=== PATIENT | male | born 1945 | race Caucasian/White ===

== ENCOUNTER 2017-05-08 01:14 | Inpatient (IN) | payer MEDICARE, OTHER ==
[2017-05-08] VITALS (26 sets, daily range): BP systolic 108–198; BP diastolic 60–117; PULSE 60–80; RESP 12–20; TEMP 97.3–98.1; O2SAT 97–100
[~2017-05-08] VITALS: Ht 170.2 cm; Wt 71.7 kg
[~2017-05-08 01:14] MED LIST: ANTI25TA2 PO; ATRO17AE IN; ATRO17AE INH; BACL10TA PO; BACLPOW30 XX; CLON-481 PO; CLON.2 PO; DEPA500T3 PO; DOCU1CAP39 PO; DUONI NEB; FLEX10TA PO; FLON0.053; HYDR-3129 PO; HYDR25TA35 PO; IMIT50TA PO; IPRA17I INH; LIDO5DIS35 TD; LORA-474 PO; LYRI50CA2 PO; MECL-62 PO; MOBI7.5T PO; NORV5TAB PO; OXYC30TA PO; POLY119S PO; POTA-267 PO; PRIL40CA PO; SENN-29 PO; SERT50 PO; SUMA50 PO; THERM PO; TRAZ100 PO; ULTR50TA PO; VITA-83 PO; VITATAB25 PO; ZANT150T2 PO; ZOLO100T PO; [UNRECOGNIZED DRUG - CODE] EACH EYE; [UNRECOGNIZED DRUG - CODE] EX
[2017-05-08] MEDS ORDERED: SODIUM CHLORIDE 0.9% FLUSH 10 ML FLUSH IVF PRN (01:30)
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
[2017-05-08] MEDS ORDERED: LISI10TA3 PO (02:02)
[2017-05-08] MEDS ORDERED: TRAZ100T10 PO (02:02)
[2017-05-08] MEDS ORDERED: DEPA500T PO (02:02)
[2017-05-08] MEDS ORDERED: OS-CTAB3 PO (02:02)
[2017-05-08] MEDS ORDERED: HYDR-4204 TOPICAL (02:02)
[2017-05-08] MEDS ORDERED: ALPR.5 PO (02:02)
[2017-05-08] MEDS ORDERED: VITATAB56 PO (02:02)
[2017-05-08] MEDS ORDERED: HYDR-3366 PO (02:02)
--- NOTE | 2017-05-08 02:12 | RADRPT ---
EXAM DATE/TIME: 05/08/2017 01:58 [facility] COMPARISON: CT BRAIN W/O CONTRAST, July 22, 2014, 6:11. INDICATIONS : Trauma, fall. Hematoma to right head. RADIATION DOSE: 31.19 CTDIvol (mGy) MEDICAL HISTORY : Cerebrovascular disease. Hypertension. CAD. SURGICAL HISTORY : None. ENCOUNTER: Initial ACUITY: 3 days PAIN SCALE: 10/10 LOCATION: Right cranial TECHNIQUE: Multiple contiguous axial images were obtained of the head. Using automated exposure control and adj ustment of the mA and/or kV according to patient size, radiation dose was kept as low as reasonably a chievable to obtain optimal diagnostic quality images. DICOM format image data is available electro nically for review and comparison. FINDINGS: There is a moderate to large right subdural hematoma over the right frontal and parietal convexi ties measuring up to 1.8 cm with mass effect and midline shift to the left of approximately 8 mm. The re are areas of subarachnoid hemorrhage involving the parietal convexities bilaterally. There is part ial effacement of the right lateral ventricle. There is a cephalohematoma over the right frontal and parietal bones with no evidence of fracture. Air-fluid levels are noted in the sphenoid sinuses right greater than left. There is mucosal thickening in the ethmoidal air cells. There is mild asymmetry o f the suprasellar cisterns CONCLUSION: 1. Moderate to large right subdural hematoma with mass effect and midline shift. 2. Bilateral subarachnoid hemorrhage. 3. Large cephalohematoma over the right frontal and parietal bones with no evidence of fracture. Jacobo Davis MD on May 08, 2017 at 2:04 Board Certified Radiologist. This report was verified electronically.
--- NOTE | 2017-05-08 02:13 | RADRPT ---
EXAM DATE/TIME: 05/08/2017 01:58 [facility] COMPARISON: No previous studies available for comparison. INDICATIONS : Trauma, fall. RADIATION DOSE: 19.24 CTDIvol (mGy) MEDICAL HISTORY : Hypertension. Cerebrovascular disease. CAD. SURGICAL HISTORY : None. ENCOUNTER: Initial ACUITY: 3 days PAIN SCALE: 0/10 LOCATION: neck TECHNIQUE: Volumetric scanning of the cervical spine was performed. Multiplanar reconstructions i n the sagittal, coronal and oblique axial planes were performed. Using automated exposure control a nd adjustment of the mA and/or kV according to patient size, radiation dose was kept as low as reason ably achievable to obtain optimal diagnostic quality images. DICOM format image data is available e lectronically for review and comparison. FINDINGS: The sagittal reconstructions demonstrate normal alignment and normal prevertebral soft tissues. The d ens is intact and there is a normal atlantoaxial relationship. Degenerative changes present greatest at the C4-5 level with disc space narrowing and hypertrophic change. The axial images demonstrate that the vertebral bodies and posterior elements are intact. The soft ti ssues are within normal limits. There is no evidence of acute fracture or malalignment. Degenerative changes are noted involving the uncovertebral joints. CONCLUSION: Negative trauma CT. Jacobo Davis MD on May 08, 2017 at 2:11 Board Certified Radiologist. This report was verified electronically.
[2017-05-08] MEDS ORDERED: LABETALOL HCL 100 MG/20 ML VIAL IV PUSH ONE ×2 (02:15→02:30)
[2017-05-08 02:17] LABS: AUTOMATED NEUTROPHIL # 3.9 TH/MM3 (1.8-7.7); BASOPHIL # 0.1 TH/MM3 (0-0.2); BASOPHIL % 2.1 % (0.0-2.0); EOSINOPHIL % 0.4 % (0.0-4.0); HEMATOCRIT 40.4 % (39.0-51.0); HEMOGLOBIN 13.8 GM/DL (13.0-17.0); LYMPH % 16.3 % (9.0-44.0); LYMPHOCYTE # 0.9 TH/MM3 (1.0-4.8); MEAN CELL VOLUME 94.8 FL (80.0-100.0); MEAN CORPUSCULAR HEMOGLOBIN 32.4 PG (27.0-34.0); MEAN CORPUSCULAR HGB CONC 34.1 % (32.0-36.0); MONO % 10.5 % (0.0-8.0); MONOCYTE # 0.6 TH/MM3 (0-0.9); NEUT % 70.7 % (16.0-70.0); PLATELET COUNT 62 TH/MM3 (150-450); RED BLOOD COUNT 4.26 MIL/MM3 (4.50-5.90); RED CELL DISTRIBUTION WIDTH 15.1 % (11.6-17.2); WHITE BLOOD COUNT 5.5 TH/MM3 (4.0-11.0)
[2017-05-08 02:18] LABS: INTERNATIONAL NORMALIZED RATIO 1.2 RATIO; PROTHROMBIN TIME - PATIENT 11.8 SEC (9.8-11.6)
--- NOTE | 2017-05-08 02:18 | RADRPT ---
EXAM DATE/TIME: 05/08/2017 01:58 [facility] COMPARISON: CT BRAIN W/O CONTRAST, May 08, 2017, 1:58. INDICATIONS : Trauma, fall. Hematoma to right side of head. RADIATION DOSE: 54.08 CTDIvol (mGy) MEDICAL HISTORY : Cerebrovascular disease. Hypertension. CAD. SURGICAL HISTORY : None. ENCOUNTER: Initial ACUITY: 1 day PAIN SCORE: 4/10 LOCATION: facial TECHNIQUE: Volumetric scanning of the facial bones was performed. Using automated exposure control and adjustme nt of the mA and/or kV according to patient size, radiation dose was kept as low as reasonably achiev able to obtain optimal diagnostic quality images. DICOM format image data is available electronicall y for review and comparison. FINDINGS: ORBITS: The orbital and infraorbital osseous structures are intact. The retroconal structures have a normal configuration. No radiopaque foreign bodies are seen. NASAL BONE: The nasal bone and maxillary spine are intact ZYGOMATIC ARCHES: Symmetric without evidence of fracture. SINUSES: The maxillary, ethmoid and frontal sinuses are intact. There are fluid levels in both sphenoid sinuse s and right frontal sinus. Mucosal thickening is noted in the ethmoidal air cells. NASAL CAVITY: The nasal septum is intact and midline. The lacrimal ducts are intact. SOFT TISSUES: No radiopaque foreign bodies seen. No soft-tissue swelling is seen. INTRACRANIAL: No intracranial air seen. CRIBIFORM PLATE: Grossly intact. The right subdural hematoma seen on the brain CT is again visualized. CONCLUSION: 1. No acute fracture or malalignment. 2. Air-fluid levels and mucosal thickening in the paranasal sinuses. 3. Moderate to large right subdural hematoma again visualized. Please see brain CT for further detail hank Davis MD on May 08, 2017 at 2:12 Board Certified Radiologist. This report was verified electronically.
--- NOTE | 2017-05-08 02:19 | RADRPT ---
EXAM DATE/TIME: 05/08/2017 01:49 [facility] COMPARISON: CHEST SINGLE AP, July 22, 2014, 5:20. INDICATIONS : Chest pain post fall. MEDICAL HISTORY : None. SURGICAL HISTORY : Pacemaker. ENCOUNTER: Initial ACUITY: 1 day PAIN SCORE: 110 LOCATION: Bilateral chest FINDINGS: A single view of the chest demonstrates the lungs to be symmetrically aerated without evidence of mas s, infiltrate or effusion. The cardiomediastinal contours are unremarkable. Osseous structures are intact. The right subclavian area sequential transvenous pacer remains in place. Mild atherosclerotic changes are present in the aorta. CONCLUSION: No acute disease. Jacobo Davis MD on May 08, 2017 at 2:17 Board Certified Radiologist. This report was verified electronically.
--- NOTE | 2017-05-08 02:20 | RADRPT ---
EXAM DATE/TIME: 05/08/2017 01:50 [facility] COMPARISON: No previous studies available for comparison. INDICATIONS : Pelvis pain post fall. MEDICAL HISTORY : None. SURGICAL HISTORY : Pain pump. ENCOUNTER: Initial ACUITY: 1 day PAIN SCORE: 1/10 LOCATION: Bilateral pelvis. FINDINGS: A single frontal view of the pelvis demonstrates no evidence of fracture. The bony pelvic ring is in tact. Bony mineralization is normal. The soft tissues are intact. A pain pump is present projected over the right ilium which is partially obscured. CONCLUSION: No acute fracture. The hips are intact. Jacobo Davis MD on May 08, 2017 at 2:18 Board Certified Radiologist. This report was verified electronically.
[2017-05-08] MEDS ORDERED: MORPHINE SULFATE 4 MG/ML INJ IV PUSH ONE (02:30)
[2017-05-08 02:41] LABS: BICARBONATE 26.1 MEQ/L (21.0-32.0); CALCIUM 8.6 MG/DL (8.5-10.1); CREATININE 0.88 MG/DL (0.60-1.30)
[2017-05-08] MEDS ORDERED: SENNOSIDES 8.6 MG TAB PO PRN ×2 (02:45→04:00)
[2017-05-08] MEDS ORDERED: SODIUM CHLORIDE 0.9% FLUSH 10 ML FLUSH IV FLUSH PRN ×2 (02:45→04:00)
[2017-05-08] MEDS ORDERED: RESP: ALBUTEROL 2.5 MG/3 ML NEB (PRN) NEB (02:45)
[2017-05-08] MEDS ORDERED: LACTULOSE SYRUP 20 GM/30 ML CUP PO PRN ×2 (02:45→04:00)
[2017-05-08] MEDS ORDERED: LORazepam 2 MG/ML VIAL IV PUSH PRN (02:45)
[2017-05-08] MEDS ORDERED: MAGNESIUM HYDROXIDE SUSP 30 ML CUP PO PRN ×2 (02:45→04:00)
[2017-05-08] MEDS ORDERED: CALCIUM GLUCONATE INJ 1 GM in SODIUM CHLORIDE 0.9% INJ 100 ML IV PRN (02:45)
[2017-05-08] MEDS ORDERED: MAGNESIUM SULFATE INJ 2 GM in SODIUM CHLORIDE 0.9% INJ 100 ML IV PRN (02:45)
[2017-05-08] MEDS ORDERED: SODIUM CHLOR 0.9% 250 ML INJ 250 ML IV ONE (02:45)
[2017-05-08] MEDS ORDERED: niCARdipine INJ 25 MG in SODIUM CHLOR 0.9% 250 ML INJ 240 ML IV ONE (02:45)
[2017-05-08] MEDS ORDERED: diphenhydrAMINE HCL 25 MG CAP PO PRN (02:45)
[2017-05-08] MEDS ORDERED: ONDANSETRON HCL 4 MG/2 ML VIAL IV PUSH PRN (02:45)
[2017-05-08] MEDS ORDERED: BISACODYL 10 MG SUPP RECTAL PRN ×2 (02:45→04:00)
[2017-05-08] MEDS ORDERED: FUROSEMIDE 20 MG/2 ML VIAL IV PUSH ONE (02:45)
[2017-05-08] MEDS ORDERED: MORPHINE SULFATE 4 MG/ML INJ IV PUSH PRN ×2 (02:45)
[2017-05-08] MEDS ORDERED: ALUMINUM/MAGNESIUM/SIMETH 30 ML CUP PO PRN (02:45)
[2017-05-08] MEDS ORDERED: ZOLO100T PO (02:48)
[2017-05-08] MEDS ORDERED: CETI10CA3 PO (02:48)
[2017-05-08] MEDS ORDERED: levETIRAcetam INJ 100 ML IV ONE (02:55)
[2017-05-08] MEDS ORDERED: THROMBIN (TOPICAL) 5,000 UNIT VIAL ONE (03:12)
[2017-05-08] MEDS ORDERED: GELFOAM SIZE 100 ONE (03:12)
[2017-05-08] MEDS ORDERED: GENTAMICIN SULFATE 80 MG/2 ML VIAL ONE (03:12)
[2017-05-08] MEDS ORDERED: BUPIVACAINE/EPINEPHRINE 0.5% PF 30 ML VIAL ONE (03:15)
[2017-05-08] MEDS ORDERED: ACETAMINOPHEN 325 MG TAB PO PRN (04:00)
[2017-05-08] MEDS ORDERED: RESP: ALBUTEROL 2.5 MG/IPRATROPIUM 0.5 MG NEB (PRN) INH (04:00)
[2017-05-08] MEDS: CHLORHEXIDINE GLUCONATE 2 % 1 PACK (2 CLOTHS) TOP SCH (04:00)
[2017-05-08] MEDS ORDERED: MISCELLANEOUS NURSING INFORMATION XX SCH (04:00)
[2017-05-08] MEDS ORDERED: CHLORHEXIDINE GLUCONATE 2 % 1 PACK (2 CLOTHS) TOP PRN (04:00)
--- NOTE | 2017-05-08 04:20 | HHI.HP ---
HPI Service Critical Care Medicine Primary Care Physician Farshad Crowley MD Admission Diagnosis SUBDURAL hematoma with shift Diagnosis: Travel History International Travel<30 Days: No Contact w/Intl Traveler <30 Da: No Traveled to Known Affected Are: No History of Present Illness 72-year-old male , currently at the rehabilitation facility, who fell from his bed and has a swelling to his right temporal area. He has arrived C-collared and boarded complains also back pain and mid thoracic. Patient is hard of hearing and slightly demented. His main complaint is fall from bed swelling to his head and back neck just prior to arrival. CT of the head reveals moderate to large right subdural hematoma with a mass effect and midline shift. Bilateral subarachnoid humeri which, a large cephalohematoma over the right frontal and parietal bones with no evidence of fracture. The patient is admitted to critical care services with a neurosurgical consultation in place. 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 Past Medical History Anemia Anxiety and depression Heart block status post PPM COPD Hypertension Tonic pain syndrome Migraines History of alcoholism Past Surgical History Permanent pacemaker placement Right shoulder surgery Reported Medications Reported Meds & Active Scripts Active Reported Zyrtec (Cetirizine HCl) 10 Mg Capsule 10 PO HS Zoloft (Sertraline HCl) 100 Mg Tab 200 Mg PO DAILY Xanax (Alprazolam) 0.5 Mg Tab 0.5 Mg PO Q6H PRN Vitamin D-400 (Cholecalciferol) 400 Unit Tab 400 Units PO DAILY Trazodone (Trazodone HCl) 100 Mg Tablet 200 Mg PO HS Os-Ramana Calcium + D3 (Calcium Carbonate-Cholecalciferol) 500-200 Mg-Unit Tab 1 Tab PO BID [place] (Hydrocodone-Acetaminophen) 10-325 Mg Tab 1 Tab PO Q4H PRN Lisinopril 10 Mg Tab 10 Mg PO DAILY Ala-Berny Topical (Hydrocortisone (Topical)) 2.5% Cream 1 Applic TOPICAL DIRECTED Sheri BRAGG (Divalproex Sodium) 500 Mg Tabdr 500 Mg PO BID Active Ordered Medications Current Medications Medications (Trade) Dose Ordered Sig/Pasquale Route PRN Reason Start Time Stop Time Status Last Admin Dose Admin Sodium Chloride (NS Flush) 2 ml UNSCH PRN IVF FLUSH AFTER USING IV ACCESS 05/08/17 01:30 Sodium Chloride 250 ml @ 15 mls/hr ONCE ONCE IV 05/08/17 02:45 05/08/17 19:24 Diphenhydramine HCl (Benadryl) 25 mg Q4H PRN PO SEE LABEL COMMENTS 05/08/17 02:45 Sodium Chloride (NS Flush) 2 ml UNSCH PRN IV FLUSH FLUSH AFTER USING IV ACCESS 05/08/17 02:45 Sodium Chloride (NS Flush) 2 ml BID IV FLUSH 05/08/17 09:00 Levetriacetam 500 mg/Sodium Chloride 105 ml @ 400 mls/hr Q12H IV 05/08/17 15:00 Lorazepam (Ativan Inj) 1 mg Q1H PRN IV PUSH SEIZURES 05/08/17 02:45 Al Hydrox/Mg Hydrox/Simethicone (Mag-Al Plus Susp Liq) 30 ml Q6H PRN PO DYSPEPSIA 05/08/17 02:45 Pantoprazole Sodium (Protonix) 40 mg DAILY PO 05/08/17 09:00 Ondansetron HCl (Zofran Inj) 4 mg Q6H PRN IV PUSH NAUSEA OR VOMITING 05/08/17 02:45 Calcium Gluconate 1 gm/Sodium Chloride 110 ml @ 110 mls/hr UNSCH PRN IV SEE LABEL COMMENTS 05/08/17 02:45 Potassium Chloride 100 ml @ 50 mls/hr UNSCH PRN IV POTASSIUM LESS THAN 4 05/08/17 02:45 Magnesium Sulfate 2 gm/Sodium Chloride 104 ml @ 100 mls/hr UNSCH PRN IV MAGNESIUM LESS THAN 2 05/08/17 02:45 Morphine Sulfate (Morphine Inj) 2 mg Q2H PRN IV PUSH PAIN SCALE 1 TO 6 05/08/17 02:45 Morphine Sulfate (Morphine Inj) 4 mg Q2H PRN IV PUSH PAIN SCALE 7 TO 10 05/08/17 02:45 Labetalol HCl (Trandate Inj) 10 mg Q1H PRN IV PUSH SYS BP GREATER THAN 170 MMHG 05/08/17 02:45 Clonidine (Catapres) 0.1 mg Q6H PRN PO SYS BP GREATER THAN 170 MMHG 05/08/17 02:45 Albuterol Sulfate (Albuterol Neb) 2.5 mg Q4HR NEB PRN NEB WHEEZING 05/08/17 02:45 Senna/Docusate Sodium (Jenny-Colace) 1 tab BID PO 05/08/17 09:00 Magnesium Hydroxide (Milk Of Magnesia Liq) 30 ml Q12H PRN PO Mild constipation 05/08/17 02:45 Sennosides (Senokot) 17.2 mg Q12H PRN PO Moderate constipation 05/08/17 02:45 Bisacodyl (Dulcolax Supp) 10 mg DAILY PRN RECTAL SEVERE CONSITIPATION 05/08/17 02:45 Lactulose (Lactulose Liq) 30 ml DAILY PRN PO SEVERE CONSITIPATION 05/08/17 02:45 Nicardipine HCl 25 mg/Sodium Chloride 250 ml @ 50 mls/hr TITRATE PRN IV Blood pressure management 05/08/17 02:45 Family History No family history significant of cancer Social History Alcohol Use: Yes (OCC) Tobacco Use: Yes (1/4 PPD) Substance Use: Yes (HX OF PER REHAB FACILITY) Physical Exam Vital Signs Vital Signs Date Time Temp Pulse Resp B/P (MAP) Pulse Ox O2 Delivery O2 Flow Rate FiO2 05/08/17 03:45 97.5 74 20 117/73 98 05/08/17 03:25 74 20 123/75 (91) 99 Nasal Cannula 2.00 05/08/17 03:08 73 20 128/79 (95) 98 Nasal Cannula 2.00 05/08/17 03:02 72 20 137/80 (99) 98 Nasal Cannula 2.00 05/08/17 02:55 74 114/72 05/08/17 02:43 69 178/94 05/08/17 02:41 70 18 178/94 (122) 98 Room Air 05/08/17 02:38 67 20 192/101 (131) 99 Nasal Cannula 2.00 05/08/17 02:30 71 20 193/109 (137) 100 Nasal Cannula 2.00 05/08/17 02:22 69 20 197/114 (141) 99 Nasal Cannula 2.00 05/08/17 02:16 66 20 198/98 (131) 97 Nasal Cannula 2.00 05/08/17 01:49 98 Nasal Cannula 2.00 05/08/17 01:32 80 20 99 05/08/17 01:26 98.1 80 20 189/117 (141) 99 Physical Exam GENERAL: Well-nourished, well-developed patient. SKIN: Warm and dry. HEAD: Right head swelling 4 cm over right druze . EYES: No scleral icterus. No injection or drainage. NECK: Supple, trachea midline. No JVD or lymphadenopathy. CARDIOVASCULAR: Regular rate and rhythm without murmurs, gallops, or rubs. RESPIRATORY: Breath sounds equal bilaterally. No accessory muscle use. GASTROINTESTINAL: Abdomen soft, non-tender, nondistended. MUSCULOSKELETAL: No cyanosis, or edema. BACK: Nontender without obvious deformity. NEURO EXAM: GCS: 15 Mental Status: The patient is alert and oriented to person, place, and time with normal speech. Laboratory Laboratory Tests Test 05/08/17 01:30 White Blood Count 5.5 Red Blood Count 4.26 Hemoglobin 13.8 Hematocrit 40.4 Mean Corpuscular Volume 94.8 Mean Corpuscular Hemoglobin 32.4 Mean Corpuscular Hemoglobin Concent 34.1 Red Cell Distribution Width 15.1 Platelet Count 62 Mean Platelet Volume 9.0 Neutrophils (%) (Auto) 70.7 Lymphocytes (%) (Auto) 16.3 Monocytes (%) (Auto) 10.5 Eosinophils (%) (Auto) 0.4 Basophils (%) (Auto) 2.1 Neutrophils # (Auto) 3.9 Lymphocytes # (Auto) 0.9 Monocytes # (Auto) 0.6 Eosinophils # (Auto) 0.0 Basophils # (Auto) 0.1 CBC Comment AUTO DIFF Differential Comment AUTO DIFF CONFIRMED Platelet Estimate LOW Platelet Morphology Comment NORMAL Prothrombin Time 11.8 Prothromb Time International Ratio 1.2 Blood Urea Nitrogen 17 Creatinine 0.88 Random Glucose 129 Calcium Level 8.6 Sodium Level 137 Potassium Level 3.8 Chloride Level 104 Carbon Dioxide Level 26.1 Anion Gap 7 Estimat Glomerular Filtration Rate 85 Result Diagram: 05/08/1712905/08/17129 Imaging Last 24 hours Impressions Pelvis X-Ray 05/08/17128 Signed Impressions: Service Date/Time: April 01:50 - CONCLUSION: No acute fracture. The hips are intact. Jacobo Davis MD Maxillofacial CT 05/08/17128 Signed Impressions: Service Date/Time: April 01:58 - CONCLUSION: 1. No acute fracture or malalignment. 2. Air-fluid levels and mucosal thickening in the paranasal sinuses. 3. Moderate to large right subdural hematoma again visualized. Please see brain CT for further details. Jacobo Davis MD Head CT 05/08/17128 Signed Impressions: Service Date/Time: April 01:58 - CONCLUSION: 1. Moderate to large right subdural hematoma with mass effect and midline shift. 2. Bilateral subarachnoid hemorrhage. 3. Large cephalohematoma over the right frontal and parietal bones with no evidence of fracture. Jacobo Davis MD Chest X-Ray 05/08/17128 Signed Impressions: Service Date/Time: April 01:49 - CONCLUSION: No acute disease. Jacobo Davis MD Cervical Spine CT 05/08/17128 Signed Impressions: Service Date/Time: April 01:58 - CONCLUSION: Negative trauma CT. Jacobo Davis MD Septic Shock Reassessment Septic shock perfusion: reassessment completed Caprini VTE Risk Assessment Caprini VTE Risk Assessment: Mod/High Risk (score >= 2) Caprini Risk Assessment Model Point Value = 1 Point Value = 2 Point Value = 3 Point Value = 5 Age 41-60 Minor surgery BMI > 25 kg/m2 Swollen legs Varicose veins or History of unexplained or recurrent spontaneous Oral contraceptives or hormone replacement Sepsis (< 1 month) Serious lung disease, including pneumonia (< 1 month) Abnormal pulmonary function Acute myocardial infarction Congestive heart failure (< 1 month) History of inflammatory bowel disease Medical patient at bed rest Age 61-74 Arthroscopic surgery Major open surgery (> 45 min) Laparoscopic surgery (> 45 min) Malignancy Confined to bed (> 72 hours) Immobilizing plaster cast Central venous access Age >= 75 History of VTE Family history of VTE Factor V Leiden Prothrombin [id number] Lupus anticoagulant Anticardiolipin antibodies Elevated serum homocysteine Heparin-induced thrombocytopenia Other congenital or acquired thrombophilia Stroke (< 1 month) Elective arthroplasty Hip, pelvis, or leg fracture Acute spinal cord injury (< 1 month) Prophylaxis Regimen Total Risk Factor Score Risk Level Prophylaxis Regimen 0-1 Low Early ambulation 2 Moderate Order ONE of the following: *Sequential Compression Device (SCD) *Heparin 5000 units SQ BID 3-4 Higher Order ONE of the following medications: *Heparin 5000 units SQ TID *Enoxaparin/Lovenox 40 mg SQ daily (WT < 150 kg, CrCl > 30 mL/min) *Enoxaparin/Lovenox 30 mg SQ daily (WT < 150 kg, CrCl > 10-29 mL/min) *Enoxaparin/Lovenox 30 mg SQ BID (WT < 150 kg, CrCl > 30 mL/min) AND/OR *Sequential Compression Device (SCD) 5 or more Highest Order ONE of the following medications: *Heparin 5000 units SQ TID (Preferred with Epidurals) *Enoxaparin/Lovenox 40 mg SQ daily (WT < 150 kg, CrCl > 30 mL/min) *Enoxaparin/Lovenox 30 mg SQ daily (WT < 150 kg, CrCl > 10-29 mL/min) *Enoxaparin/Lovenox 30 mg SQ BID (WT < 150 kg, CrCl > 30 mL/min) AND *Sequential Compression Device (SCD) Assessment and Plan Assessment and Plan Subdural hematoma - Admit to [facility] - Neuro checks per unit protocol - Neurosurgical consultation - Keep platelet count above 100 - Further management per neurosurgeon Thrombocytopenia - Transfuse platelets to keep count above 100 Hypertension - Continue lisinopril - Nicardipine drip to keep SBP less than 150 Seizure disorder - Depakote - Keppra for further seizure prophylaxis Depressions - Zoloft History of alcohol abuse - Monitor for withdrawal - Initiate CIWA protocol if indicated DVT GI prophylaxis - Teds SCDs - No pharmacological DVT prophylaxis due to acute ICH and thrombocytopenia - IV Pepcid Critical Care: The total critical care time was 35 minutes. Time to perform other separately billable procedures was not included in the critical care time. Ruslan Mcghee MD May 08, 2017 4:20 am
[2017-05-08] MEDS ORDERED: VANCOMYCIN HCL 1000 MG VIAL ONE (05:03)
--- NOTE | 2017-05-08 05:59 | PD.OP ---
Farshad Crowley MD Operative Report Date of Surgery: May 08, 2017 Preoperative Diagnosis: Acute large right frontotemporoparietal subdural hemorrhage Postoperative Diagnosis: Same Procedure: Right craniotomy for subdural hemorrhage evacuation Anesthesia: Gen. endotracheal by Gena masters Surgeon: Sotero Nelson M.D. Transport Analyst(s): Jacobo Crespo Operation and Findings: Following initiation of a general endotracheal anesthesia the patient had lines and Martins catheter in place along with the sequential compression device. A gram of vancomycin was administered intravenously and he was positioned with the right side up on a shoulder roll and head secured on a horseshoe headrest. The right frontal, temporal and parietal areas shaved and prepped with ChloraPrep and sterilely draped in the usual sterile fashion. A curvilinear reverse question nikos trauma incision site was then made after infiltrating the scalp was 0.5% Marcaine with epinephrine solution a skin incision made extending onto the galea and temporalis muscle fascia. Rahel clips were used at the scalp edges for hemostasis and the flap retracted with fishhooks. With an automated junior recruiter flaco hole was made and with the craniotome the bone flap elevated. The dura was opened in a cruciate form and subdural hemorrhage under pressure was identified with clotted clotted acute blood. After evacuation of subdural hemorrhage, the brain remained depressed from the inner table. A subdural drain was and also place which was exited through the flaco hole and a separate site and secured to the scalp. The dura was approximated using 4 Nurolon interrupted stitches along with a central dural tacking stitch and circumferential bone holes placed in the craniotomy edges with the double tacking for hemostasis and the bone flap approximated using Frances mini plates. The temporalis muscle/fascia approximated using 2-0 Vicryl sutures and galea was then approximated using 2-0 Vicryl Sutures and final scalp closure was with jessica. A sterile pressure dressing was then applied and the patient taken to the recovery room. There were no intraoperative complications and all sponge and needle count was correct at the end of the procedure. Estimated blood loss about 100 cc. Sotero Nelson MD May 08, 2017 05:59
[2017-05-08] MEDS: niCARdipine INJ 25 MG in SODIUM CHLOR 0.9% 250 ML INJ 240 ML IV PRN (06:30)
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
[2017-05-08] MEDS: fentaNYL DRIP 250 ML IV PRN (07:25)
[2017-05-08] MEDS: PROPOFOL 1000 MG/100 ML INJ 100 ML IV PRN (07:25)
[2017-05-08 07:36] LABS: AUTOMATED NEUTROPHIL # 5.2 TH/MM3 (1.8-7.7); BASOPHIL % 0.4 % (0.0-2.0); EOSINOPHIL % 0.1 % (0.0-4.0); HEMATOCRIT 34.7 % (39.0-51.0); LYMPH % 15.3 % (9.0-44.0); LYMPHOCYTE # 1.1 TH/MM3 (1.0-4.8); MEAN CELL VOLUME 94.5 FL (80.0-100.0); MEAN CORPUSCULAR HEMOGLOBIN 32.7 PG (27.0-34.0); MEAN CORPUSCULAR HGB CONC 34.6 % (32.0-36.0); MEAN PLATELET VOLUME 8.2 FL (7.0-11.0); NEUT % 70.2 % (16.0-70.0); PLATELET COUNT 130 TH/MM3 (150-450); RED BLOOD COUNT 3.68 MIL/MM3 (4.50-5.90); WHITE BLOOD COUNT 7.3 TH/MM3 (4.0-11.0)
[2017-05-08] MEDS: SODIUM CHLOR 0.9% 1000 ML INJ 1,000 ML IV SCH ×3 (07:42→21:30)
[2017-05-08 08:24] LABS: BICARBONATE 25.6 MEQ/L (21.0-32.0); CREATININE 0.8 MG/DL (0.60-1.30)
[2017-05-08] MEDS: LISINOPRIL 10 MG TAB PO SCH (09:00)
[2017-05-08] MEDS: PANTOPRAZOLE SOD 40 MG DELAYED RELEASE TAB PO SCH (09:00)
[2017-05-08] MEDS ORDERED: SODIUM CHLORIDE 0.9% FLUSH 10 ML FLUSH IV FLUSH SCH (09:00)
[2017-05-08] MEDS: DOCUSATE SODIUM 50 MG/SENNA 8.6 MG TAB PO SCH ×2 (09:00→20:33)
[2017-05-08] MEDS: CHOLECALCIFEROL (VIT D3) 400 UNIT TAB PO SCH (09:00)
[2017-05-08] MEDS: SODIUM CHLORIDE 0.9% FLUSH 10 ML FLUSH IV FLUSH SCH ×2 (09:00→20:33)
[2017-05-08] MEDS: FAMOTIDINE 20 MG/2 ML VIAL IV PUSH SCH ×2 (09:00→20:33)
[2017-05-08] MEDS: CALCIUM/VITAMIN D 250 MG/125 U TAB PO SCH ×2 (09:00→20:32)
[2017-05-08] MEDS ORDERED: DOCUSATE SODIUM 50 MG/SENNA 8.6 MG TAB PO SCH (09:00)
[2017-05-08] MEDS: DIVALPROEX DR 500 MG TABEC PO SCH ×2 (09:00→20:33)
[2017-05-08] MEDS: HYDROCORTISONE 2.5% CREAM 30 GM TOPICAL SCH (09:00)
[2017-05-08] MEDS: SERTRALINE HCL 100 MG TAB PO SCH (09:00)
[2017-05-08] MEDS ORDERED: NOREPINEPHRINE-DEXTROSE DRIP 250 ML IV ONE (10:22)
[2017-05-08] MEDS ORDERED: SODIUM CHLOR 0.9% 1000 ML INJ 1,000 ML IV ONE (10:45)
[2017-05-08 11:27] LABS: AUTOMATED NEUTROPHIL # 4.7 TH/MM3 (1.8-7.7); BASOPHIL % 0.4 % (0.0-2.0); HEMATOCRIT 32.2 % (39.0-51.0); HEMOGLOBIN 11.2 GM/DL (13.0-17.0); LYMPHOCYTE # 0.7 TH/MM3 (1.0-4.8); MEAN CELL VOLUME 94.4 FL (80.0-100.0); MEAN CORPUSCULAR HEMOGLOBIN 32.9 PG (27.0-34.0); MEAN CORPUSCULAR HGB CONC 34.9 % (32.0-36.0); MEAN PLATELET VOLUME 8.5 FL (7.0-11.0); MONO % 10.9 % (0.0-8.0); MONOCYTE # 0.7 TH/MM3 (0-0.9); NEUT % 77.7 % (16.0-70.0); PLATELET COUNT 124 TH/MM3 (150-450); RED BLOOD COUNT 3.41 MIL/MM3 (4.50-5.90)
[2017-05-08 11:39] LABS: INTERNATIONAL NORMALIZED RATIO 1.1 RATIO; PROTHROMBIN TIME - PATIENT 11.6 SEC (9.8-11.6)
[2017-05-08 11:44] LABS: ALBUMIN 2.6 GM/DL (3.4-5.0); ALT (GPT) 28 U/L (12-78); AST (GOT) 39 U/L (15-37); BICARBONATE 25.7 MEQ/L (21.0-32.0); BLOOD UREA NITROGEN 15 MG/DL (7-18); CALCIUM 7.7 MG/DL (8.5-10.1); CHLORIDE 104 MEQ/L (98-107); CREATININE 0.78 MG/DL (0.60-1.30); GLOMERULAR FILTRATION RATE 98 ML/MIN (>89); GLUCOSE,RANDOM 127 MG/DL (74-106); MAGNESIUM 1.9 MG/DL (1.5-2.5); PHOSPHORUS 2.9 MG/DL (2.5-4.9); SODIUM (NA) 136 MEQ/L (136-145)
[2017-05-08 11:46] LABS: ALKALINE PHOSPHATASE 49 U/L (45-117); TOTAL BILIRUBIN ADULT 0.4 MG/DL (0.2-1.0); TOTAL PROTEIN 6.7 GM/DL (6.4-8.2)
--- NOTE | 2017-05-08 11:53 | PD.PROCEDR ---
Central Line Procedure REASON FOR PROCEDURE Central venous access PROCEDURE PERFORMED Central line placement: right internal jugular CONSENT Informed consent for procedure was obtained from his daughter. The risks and benefits of the procedure were discussed to include but limited to bleeding, clot formation, infection, and even . ANESTHESIA Local injection of 1% Lidocaine DESCRIPTION OF THE PROCEDURE The patient was placed in supine, mild Trendelenburg position. The area was exposed and cleansed with ChloraPrep, times two. Large sterile drape was used to cover the patient, with the site exposed, under sterile conditions including cap, face mask, sterile gown, and sterile gloves. On single attempt, using ultrasound, the introducer needle was inserted with negative pressure in syringe and venous flash was obtained. The guide wire was then advanced without any restriction and the needle was removed. The dilator was used without any complications. Using Seldinger technique the catheter was advanced over the guide wire to a depth of 16 centimeters. The guide wire was removed. All ports were aspirated with dark venous blood return and flushed easily with sterile saline. All ports were capped. Antibiotic disc was placed around central line at puncture site. The central line was secured to the skin with two interrupted 2.0 silk sutures. The area was bandaged with sterile see- through central line bandage. RADIOLOGICAL DATA Ultrasound guidance was used to locate the vein. Doppler/color flow was used to confirm venous flow. Correct guidewire placement was verified using ultrasound. COMPLICATIONS: No immediate complications. ESTIMATED BLOOD LOSS: Less than 1 cc. Refugio Sims MD May 08, 2017 11:53
[2017-05-08] MEDS ORDERED: SODIUM CHLOR 0.9% 250 ML INJ 500 ML IV ONE (12:00)
[2017-05-08] MEDS ORDERED: LACTATED RINGER'S 1000 ML INJ 1,000 ML IV ONE (12:00)
[2017-05-08] MEDS ORDERED: ROCURONIUM INJ 50 MG/5 ML SYRINGE IV PUSH ONE (12:00)
[2017-05-08] MEDS ORDERED: PHENYLEPHRINE HCL 10 MG/ML VIAL IV ONE (12:00)
[2017-05-08] MEDS ORDERED: PHENYLEPH/NS 1000 MCG/10 ML SYR IV ONE (12:00)
[2017-05-08] MEDS ORDERED: LIDOCAINE HCL 1% PF 5 ML SYRINGE OTHER ONE (12:00)
[2017-05-08] MEDS ORDERED: ePHEDrine/NS 25 MG/5 ML SYRINGE IV ONE (12:00)
[2017-05-08] MEDS ORDERED: PROPOFOL 200 MG/20 ML AMP IV ONE (12:00)
[2017-05-08] MEDS ORDERED: SODIUM CHLORID 0.9% 500 ML INJ 500 ML IV ONE (12:00)
--- NOTE | 2017-05-08 13:03 | RADRPT ---
EXAM DATE/TIME: 05/08/2017 12:11 [place] COMPARISON: PELVIS AP ONLY, May 08, 2017, 1:50. INDICATIONS : Infiltrate. MEDICAL HISTORY : Cerebrovascular disease. Hypertension CAD. SURGICAL HISTORY : Pacemaker. ENCOUNTER: Subsequent ACUITY: 1 day PAIN SCORE: Non-responsive. LOCATION: Bilateral chest FINDINGS: The heart is normal in size. The endotracheal tubes in good position. The nasogastric tubes in satisfactory position. There is a right internal jugular line in good position. There is a transvenous pacer on the right. No pneumothorax is identified. The lungs are clear. The visualized bony structures are grossly intact . CONCLUSION: 1. No acute cardiopulmonary findings identified. Kurt Miles MD on May 08, 2017 at 12:59 Board Certified Radiologist. This report was verified electronically.
--- NOTE | 2017-05-08 14:24 | HHI.NSPN ---
History Chief Complaint: s/p right craniotomy for subdural hemorrhage evacuation. Interval History 05/08/17: Pt underwent a right craniotomy for subdural hemorrhage evacuation early this morning. His sedation was held for exam. He opens his eyes. Pupils 3mm bilaterally. Follows commands. He nods he has headache. System Review Comments Not able to obtain given clinical condition. Exam Results Vital Signs Date Time Temp Pulse Resp B/P (MAP) Pulse Ox O2 Delivery O2 Flow Rate FiO2 05/08/17 11:50 100 50 05/08/17 07:00 Mechanical Ventilator 05/08/17 06:40 67 05/08/17 06:34 97.5 12 123/72 (89) 05/08/17 03:25 2.00 Intake and Output 05/08/17 05/08/17 05/09/17 08:00 16:00 00:00 Intake Total 967 ml 2000 ml Output Total 810 ml Balance 157 ml 2000 ml Physical Examination General: Pt sedated resting comfortably in bed. Eyes: Pupils 3mm bilaterally reactive bilaterally. Resp: Intubated. Pressure controlled rate 15. Peep 5. FiO2 40%. CTA bilaterally Heart: NSR no murmurs Abd: Soft positive bs Skin: CODIE drain putting out large amount of bloody drainage. Muscle: Moves all 4 extremities with generalized weakness. Neuro: Pt sedated. Sedation held for exam. He opens his eyes. Pupils 3mm bilaterally reactive bilaterally. Follows commands. Nods head to some questions. Lab, Micro, Other Results Last Impressions Pelvis X-Ray 05/08/17128 Signed Impressions: Service Date/Time: April 01:50 - CONCLUSION: No acute fracture. The hips are intact. Jacobo Davis MD Maxillofacial CT 05/08/17128 Signed Impressions: Service Date/Time: April 01:58 - CONCLUSION: 1. No acute fracture or malalignment. 2. Air-fluid levels and mucosal thickening in the paranasal sinuses. 3. Moderate to large right subdural hematoma again visualized. Please see brain CT for further details. Jacobo Davis MD Head CT 05/08/17128 Signed Impressions: Service Date/Time: April 01:58 - CONCLUSION: 1. Moderate to large right subdural hematoma with mass effect and midline shift. 2. Bilateral subarachnoid hemorrhage. 3. Large cephalohematoma over the right frontal and parietal bones with no evidence of fracture. Jacobo Davis MD Chest X-Ray 05/08/17128 Signed Impressions: Service Date/Time: April 01:49 - CONCLUSION: No acute disease. Jacobo Davis MD Cervical Spine CT 05/08/17128 Signed Impressions: Service Date/Time: April 01:58 - CONCLUSION: Negative trauma CT. Jacobo Davis MD Laboratory Tests Test 05/08/17 01:30 05/08/17 05:12 05/08/17 06:31 05/08/17 07:17 White Blood Count 5.5 TH/MM3 7.3 TH/MM3 Red Blood Count 4.26 MIL/MM3 3.68 MIL/MM3 Hemoglobin 13.8 GM/DL 12.0 GM/DL Hematocrit 40.4 % 34.7 % Mean Corpuscular Volume 94.8 FL 94.5 FL Mean Corpuscular Hemoglobin 32.4 PG 32.7 PG Mean Corpuscular Hemoglobin Concent 34.1 % 34.6 % Red Cell Distribution Width 15.1 % 15.0 % Platelet Count 62 TH/MM3 130 TH/MM3 Mean Platelet Volume 9.0 FL 8.2 FL Neutrophils (%) (Auto) 70.7 % 70.2 % Lymphocytes (%) (Auto) 16.3 % 15.3 % Monocytes (%) (Auto) 10.5 % 14.0 % Eosinophils (%) (Auto) 0.4 % 0.1 % Basophils (%) (Auto) 2.1 % 0.4 % Neutrophils # (Auto) 3.9 TH/MM3 5.2 TH/MM3 Lymphocytes # (Auto) 0.9 TH/MM3 1.1 TH/MM3 Monocytes # (Auto) 0.6 TH/MM3 1.0 TH/MM3 Eosinophils # (Auto) 0.0 TH/MM3 0.0 TH/MM3 Basophils # (Auto) 0.1 TH/MM3 0.0 TH/MM3 CBC Comment AUTO DIFF DIFF FINAL Differential Comment AUTO DIFF CONFIRMED Platelet Estimate LOW Platelet Morphology Comment NORMAL Prothrombin Time 11.8 SEC Prothromb Time International Ratio 1.2 RATIO Blood Urea Nitrogen 17 MG/DL Creatinine 0.88 MG/DL Random Glucose 129 MG/DL Calcium Level 8.6 MG/DL Sodium Level 137 MEQ/L Potassium Level 3.8 MEQ/L Chloride Level 104 MEQ/L Carbon Dioxide Level 26.1 MEQ/L Anion Gap 7 MEQ/L Estimat Glomerular Filtration Rate 85 ML/MIN Blood Gas Puncture Site ART LINE Blood Gas Patient Temperature 98.6 Blood Gas HCO3 22 mmol/L Blood Gas Base Excess -2.1 mmol/L Blood Gas Oxygen Saturation 97 % Arterial Blood pH 7.39 Arterial Blood Partial Pressure CO2 37 mmHg Arterial Blood Partial Pressure O2 237 mmHg Arterial Blood Oxygen Content 14.5 Vol % Arterial Blood Carboxyhemoglobin 1.1 % Arterial Blood Methemoglobin 1.2 % Blood Gas Hemoglobin 10.2 G/DL Oxygen Delivery Device VENTILATOR Blood Gas Ventilator Setting O.R. GAS Blood Gas Inspired Oxygen 52 % Nasal Screen MRSA (PCR) MRSA NOT DETECTED Test 05/08/17 07:40 05/08/17 10:36 05/08/17 11:15 Blood Urea Nitrogen 15 MG/DL 15 MG/DL Creatinine 0.80 MG/DL 0.78 MG/DL Random Glucose 169 MG/DL 127 MG/DL Calcium Level 8.0 MG/DL 7.7 MG/DL Sodium Level 135 MEQ/L 136 MEQ/L Potassium Level 3.8 MEQ/L 4.1 MEQ/L Chloride Level 102 MEQ/L 104 MEQ/L Carbon Dioxide Level 25.6 MEQ/L 25.7 MEQ/L Anion Gap 7 MEQ/L 6 MEQ/L Estimat Glomerular Filtration Rate 95 ML/MIN 98 ML/MIN Blood Gas Puncture Site Blood Gas Patient Temperature 98.6 Blood Gas HCO3 23 mmol/L Blood Gas Base Excess -2.0 mmol/L Blood Gas Oxygen Saturation 98 % Arterial Blood pH 7.35 Arterial Blood Partial Pressure CO2 42 mmHg Arterial Blood Partial Pressure O2 179 mmHg Arterial Blood Oxygen Content 15.8 Vol % Arterial Blood Carboxyhemoglobin 0.8 % Arterial Blood Methemoglobin 0.9 % Blood Gas Hemoglobin 11.2 G/DL Oxygen Delivery Device VENTILATOR Blood Gas Ventilator Setting Blood Gas Inspired Oxygen 50 % White Blood Count 6.0 TH/MM3 Red Blood Count 3.41 MIL/MM3 Hemoglobin 11.2 GM/DL Hematocrit 32.2 % Mean Corpuscular Volume 94.4 FL Mean Corpuscular Hemoglobin 32.9 PG Mean Corpuscular Hemoglobin Concent 34.9 % Red Cell Distribution Width 15.0 % Platelet Count 124 TH/MM3 Mean Platelet Volume 8.5 FL Neutrophils (%) (Auto) 77.7 % Lymphocytes (%) (Auto) 11.0 % Monocytes (%) (Auto) 10.9 % Eosinophils (%) (Auto) 0.0 % Basophils (%) (Auto) 0.4 % Neutrophils # (Auto) 4.7 TH/MM3 Lymphocytes # (Auto) 0.7 TH/MM3 Monocytes # (Auto) 0.7 TH/MM3 Eosinophils # (Auto) 0.0 TH/MM3 Basophils # (Auto) 0.0 TH/MM3 CBC Comment DIFF FINAL Differential Comment Prothrombin Time 11.6 SEC Prothromb Time International Ratio 1.1 RATIO Activated Partial Thromboplast Time 28.7 SEC Total Protein 6.7 GM/DL Albumin 2.6 GM/DL Phosphorus Level 2.9 MG/DL Magnesium Level 1.9 MG/DL Alkaline Phosphatase 49 U/L Aspartate Amino Transf (AST/SGOT) 39 U/L Alanine Aminotransferase (ALT/SGPT) 28 U/L Total Bilirubin 0.4 MG/DL Lactic Acid Level 2.6 mmol/L 05/08/17 05/08/17 05/09/17 15:00 23:00 07:00 Intake Total 2000 ml Output Total 110 ml Balance 1890 ml Intake IV Total 2000 ml Drainage Total 110 ml Medical Decision Making Impression and Plan A: 72 y/o M s/p right craniotomy for subdural hemorrhage evacuation. P: Follow up CT head Continue with Neuro checks Continue with critical care. Griffin Mathis May 08, 2017 2:23 pm
--- NOTE | 2017-05-08 14:35 | RADRPT ---
EXAM DATE/TIME: 05/08/2017 14:19 [facility] COMPARISON: CT BRAIN W/O CONTRAST, May 08, 2017, 1:58. CT CERVICAL SPINE W/O CONTRAST, May 08, 2017, 1 :58. INDICATIONS : Follow up subdural RADIATION DOSE: 56.51 CTDIvol (mGy) MEDICAL HISTORY : Cardiovascular disease. Hypertension. Chronic obstructive pulmonary disease. SURGICAL HISTORY : Hysterectomy. ENCOUNTER: Subsequent ACUITY: 1 day PAIN SCALE: Non-responsive LOCATION: cranial TECHNIQUE: Multiple contiguous axial images were obtained of the head. Using automated exposure control and adj ustment of the mA and/or kV according to patient size, radiation dose was kept as low as reasonably a chievable to obtain optimal diagnostic quality images. DICOM format image data is available electro nically for review and comparison. FINDINGS: The examination demonstrates interval craniotomy for removal of a large right-sided subdural hematoma . There is pneumocephaly with a small amount of hemorrhage along the right parietal hemisphere remain ing. The examination also demonstrates scattered areas of subarachnoid hemorrhage seen bilaterally. There is some degree of intraparenchymal hemorrhage evident within the frontal lobes bilaterally and in the left temporal lobe. There is minimal intraventricular hemorrhage. These areas of hemorrhage appear s imilar to the patient's previous study dated 05/08/17. Bone window images demonstrate postcraniotomy changes within the skull. There is a surgical drain in place. There is approximately 1 mm of right to left crossing shift. This is significantly improved when comp ared to previous study. CONCLUSION: 1. The patient's right left falcine shift is essentially resolved. 2. The patient is post craniotomy for removal of a large right sided subdural. 3. There are scattered areas of intraparenchymal and subarachnoid hemorrhage seen bilaterally. Kurt Miles MD on May 08, 2017 at 14:31 Board Certified Radiologist. This report was verified electronically.
[2017-05-08] MEDS: levETIRAcetam INJ 500 MG in SODIUM CHLORIDE 0.9% INJ 100 ML IV SCH (15:00)
--- NOTE | 2017-05-08 20:00 | EKG ---
Date Performed: 05/08/2017 Time Performed: 02:27:30 PTAGE: 72 years EKG: ECTOPIC ATRIAL RHYTHM WITH FIRST DEGREE AV BLOCK LEFT ANTERIOR FASCICULAR BLOCK When compar ed to previous tracing, the patient is no longer Paced. ABNORMAL ECG PREVIOUS TRACING : 07/22/2014 0540 DOCTOR: Diann Woodard Interpretating Date/Time 05/08/2017 19:59:07
[2017-05-08] MEDS: traZODone HCL 100 MG TAB PO SCH (20:33)
[2017-05-08] MEDS ORDERED: NOREPINEPHRINE 4 MG/4 ML AMP ONE (21:24)
[2017-05-08] MEDS ORDERED: NOREPINEPHRINE INJ 4 MG in SODIUM CHLOR 0.9% 250 ML INJ 246 ML IV PRN (21:45)
[2017-05-09] VITALS (18 sets, daily range): BP systolic 99–154; BP diastolic 49–76; PULSE 60–73; RESP 14–26; TEMP 97.8–98.8; O2SAT 93–100
[2017-05-09] MEDS: PROPOFOL 1000 MG/100 ML INJ 100 ML IV PRN (01:43)
[2017-05-09] MEDS: levETIRAcetam INJ 500 MG in SODIUM CHLORIDE 0.9% INJ 100 ML IV SCH ×2 (02:09→15:10)
[2017-05-09 03:37] LABS: HEMATOCRIT 26.4 % (39.0-51.0); HEMOGLOBIN 9.1 GM/DL (13.0-17.0); MEAN CELL VOLUME 95.6 FL (80.0-100.0); MEAN CORPUSCULAR HGB CONC 34.5 % (32.0-36.0); MEAN PLATELET VOLUME 8.5 FL (7.0-11.0); PLATELET COUNT 88 TH/MM3 (150-450); RED BLOOD COUNT 2.76 MIL/MM3 (4.50-5.90); RED CELL DISTRIBUTION WIDTH 15.2 % (11.6-17.2); WHITE BLOOD COUNT 6.4 TH/MM3 (4.0-11.0)
[2017-05-09 03:47] LABS: INTERNATIONAL NORMALIZED RATIO 1.1 RATIO; PROTHROMBIN TIME - PATIENT 11.5 SEC (9.8-11.6)
[2017-05-09] MEDS: SODIUM CHLOR 0.9% 1000 ML INJ 1,000 ML IV SCH ×2 (03:50→15:11)
[2017-05-09] MEDS: CHLORHEXIDINE GLUCONATE 2 % 1 PACK (2 CLOTHS) TOP SCH (04:00)
[2017-05-09 04:44] LABS: BICARBONATE 22.3 MEQ/L (21.0-32.0); CALCIUM 6.5 MG/DL (8.5-10.1); CREATININE 0.6 MG/DL (0.60-1.30); MAGNESIUM 1.7 MG/DL (1.5-2.5); PHOSPHORUS 1.8 MG/DL (2.5-4.9); TOTAL BILIRUBIN ADULT 0.3 MG/DL (0.2-1.0); TOTAL PROTEIN 5.6 GM/DL (6.4-8.2)
[2017-05-09 04:53] LABS: CALCIUM-PROTEIN CORRECTED 7.2 MG/DL (8.5-10.1)
[2017-05-09 05:09] LABS: BANDS 13 % (0-6); MONOCYTES 6 % (0-8); NEUTROPHIL # MANUAL DIFF 5.3 TH/MM3 (1.8-7.7); POLYS (SEG NEUTROPHILS) 70 % (16-70)
[2017-05-09 05:10] LABS: LYMPHOCYTES 11 % (9-44); TOXIC VACUOLATION PRESENT (NONE SEEN)
[2017-05-09 05:11] LABS: ACANTHOCYTES OCC (NORMAL); OVALOCYTES 1+ (NORMAL)
[2017-05-09] MEDS: fentaNYL DRIP 250 ML IV PRN (06:42)
[2017-05-09] MEDS: DIVALPROEX DR 500 MG TABEC PO SCH ×3 (08:07→20:42)
[2017-05-09] MEDS: SODIUM CHLORIDE 0.9% FLUSH 10 ML FLUSH IV FLUSH SCH ×2 (08:07→20:05)
[2017-05-09] MEDS: CHOLECALCIFEROL (VIT D3) 400 UNIT TAB PO SCH (08:08)
[2017-05-09] MEDS: SERTRALINE HCL 100 MG TAB PO SCH (08:08)
[2017-05-09] MEDS: PANTOPRAZOLE SOD 40 MG DELAYED RELEASE TAB PO SCH (08:08)
[2017-05-09] MEDS: CALCIUM/VITAMIN D 250 MG/125 U TAB PO SCH ×3 (08:08→20:42)
[2017-05-09] MEDS: LISINOPRIL 10 MG TAB PO SCH (08:08)
[2017-05-09] MEDS: DOCUSATE SODIUM 50 MG/SENNA 8.6 MG TAB PO SCH ×3 (08:09→20:42)
[2017-05-09] MEDS: FAMOTIDINE 20 MG/2 ML VIAL IV PUSH SCH ×2 (08:09→20:42)
[2017-05-09] MEDS ORDERED: SODIUM CHLOR 0.9% 250 ML INJ 250 ML IV ONE (08:45)
--- NOTE | 2017-05-09 09:12 | HHI.CCPN ---
Subjective Remarks/Hospital Course 05/08: 72-year-old male , currently at the rehabilitation facility, who fell from his bed and has a swelling to his right temporal area. He has arrived C- collared and boarded complains also back pain and mid thoracic. Patient is hard of hearing and slightly demented. His main complaint is fall from bed swelling to his head and back neck just prior to arrival. CT of the head reveals moderate to large right subdural hematoma with a mass effect and midline shift. Bilateral subarachnoid humeri which, a large cephalohematoma over the right frontal and parietal bones with no evidence of fracture. The patient is admitted to critical care services with a neurosurgical consultation in place. 05/09: No events overnight. Patient remains intubated and sedated, on low FiO2 requirements. He is on low-dose norepinephrine currently at 2 mics per minute. T-max of 98.5. Objective Vital Signs Date Time Temp Pulse Resp B/P (MAP) Pulse Ox O2 Delivery O2 Flow Rate FiO2 05/09/17 08:18 100 40 05/09/17 06:00 60 05/09/17 04:00 98.5 15 106/54 (71) 05/08/17 19:00 Mechanical Ventilator 05/08/17 03:25 2.00 Intake and Output 05/09/17 05/09/17 05/10/17 08:00 16:00 00:00 Intake Total 669 ml Output Total 515 ml Balance 154 ml Result Diagram: 05/09/17 0312 05/09/17 0312 Other Results Laboratory Tests Test 05/08/17 10:36 Blood Gas Puncture Site Blood Gas Patient Temperature 98.6 Blood Gas HCO3 23 mmol/L (22-26) Blood Gas Base Excess -2.0 mmol/L (-2-2) Blood Gas Oxygen Saturation 98 % (90-100) Arterial Blood pH 7.35 (7.380-7.420) Arterial Blood Partial Pressure CO2 42 mmHg (38-42) Arterial Blood Partial Pressure O2 179 mmHg (61-120) Arterial Blood Oxygen Content 15.8 Vol % (12.0-20.0) Arterial Blood Carboxyhemoglobin 0.8 % (0-4) Arterial Blood Methemoglobin 0.9 % (0-2) Blood Gas Hemoglobin 11.2 G/DL (12.0-16.0) Oxygen Delivery Device VENTILATOR Blood Gas Ventilator Setting Blood Gas Inspired Oxygen 50 % Imaging Last Impressions Pelvis X-Ray 05/08/17128 Signed Impressions: Service Date/Time: April 01:50 - CONCLUSION: No acute fracture. The hips are intact. Jacobo Davis MD Maxillofacial CT 05/08/17128 Signed Impressions: Service Date/Time: April 01:58 - CONCLUSION: 1. No acute fracture or malalignment. 2. Air-fluid levels and mucosal thickening in the paranasal sinuses. 3. Moderate to large right subdural hematoma again visualized. Please see brain CT for further details. Jacobo Davis MD Head CT 05/08/17128 Signed Impressions: Service Date/Time: April 01:58 - CONCLUSION: 1. Moderate to large right subdural hematoma with mass effect and midline shift. 2. Bilateral subarachnoid hemorrhage. 3. Large cephalohematoma over the right frontal and parietal bones with no evidence of fracture. Jacobo Davis MD Chest X-Ray 05/08/17128 Signed Impressions: Service Date/Time: April 01:49 - CONCLUSION: No acute disease. Jacobo Davis MD Cervical Spine CT 05/08/17128 Signed Impressions: Service Date/Time: April 01:58 - CONCLUSION: Negative trauma CT. Jacobo Davis MD Last 24 hours Impressions Pelvis X-Ray 05/08/17128 Signed Impressions: Service Date/Time: April 01:50 - CONCLUSION: No acute fracture. The hips are intact. Jacobo Davis MD Maxillofacial CT 05/08/17128 Signed Impressions: Service Date/Time: April 01:58 - CONCLUSION: 1. No acute fracture or malalignment. 2. Air-fluid levels and mucosal thickening in the paranasal sinuses. 3. Moderate to large right subdural hematoma again visualized. Please see brain CT for further details. Jacobo Davis MD Head CT 05/08/17128 Signed Impressions: Service Date/Time: April 01:58 - CONCLUSION: 1. Moderate to large right subdural hematoma with mass effect and midline shift. 2. Bilateral subarachnoid hemorrhage. 3. Large cephalohematoma over the right frontal and parietal bones with no evidence of fracture. Jacobo Davis MD Chest X-Ray 05/08/17128 Signed Impressions: Service Date/Time: April 01:49 - CONCLUSION: No acute disease. Jacobo Davis MD Cervical Spine CT 05/08/17128 Signed Impressions: Service Date/Time: April 01:58 - CONCLUSION: Negative trauma CT. Jacobo Davis MD Objective Remarks General - elderly gentleman, intubated and sedated, ill-appearing HEENT - pupils equal, reactive, sclerae anicteric, neck supple, no nuchal rigidity, neck veins not distended, no carotid bruit, circumferential head dressing, positive CODIE with sanguinous drainage CV - regular S1, S2, no murmurs Chest - clear b/l, good air entry, no wheezes Abdomen soft, non-tender, non-distended, BS present, no hepatomegaly, no splenomegaly Skin - hematoma over the right side of the forehead Extremities - warm and well perfused, no edema, + peripheral pulses, no clubbing Neuro - intubated and sedated, opens eyes to voice stimuli, shows thumbs up over the right upper extremity spontaneously moves lower extremities bilateral, follows some commands A/P Assessment and Plan 1. Subdural hematoma status post evacuation, postop day 1 2. Small intraparenchymal and traumatic subarachnoid hemorrhage 3. Acute postop respiratory insufficiency, on minimal FiO2 requirements 4. Thrombocytopenia 5. Hypertension, likely secondary to sedation medication, on low-dose norepinephrine 6. Seizure disorder 7. History of alcohol abuse 8. Depression 1. Continue neuro checks per protocol 2. Continue PRBC at the current vent settings. Peak airway pressure below 30, patient synchronized with vent, no auto PEEP 3. We will start Precedex, continue fentanyl, and stop propofol 4. His SBT today with hope to extubate 5. Transfuse 2 units of platelets to keep count above 100 6. Continue norepinephrine for BP support 7. On Depakote and Keppra, no evidence of seizure so far 8. On Zoloft 9. Hypoid Gear Generator for alcohol withdrawal 10. GI prophylaxis with famotidine 11. DVT prophylaxis with SCDs. Hold heparin due to thrombocytopenia and intracranial bleed Addendum: Patient did well on pressure support and he was successfully extubated. He is slightly lethargic, easily arousable. Daughter is present at bedside. I reconfirmed with patient and daughter patient's previous DNR status and both patient and daughter want the DNR to be reinstated. We will respect their wishes. Critical Care: The total critical care time was 31 minutes. Time to perform other separately billable procedures was not included in the critical care time. Refugio Sims MD May 09, 2017 09:11
[2017-05-09] MEDS ORDERED: DEXMEDETOMIDINE INJ 200 MCG in SODIUM CHLORIDE 0.9% INJ 50 ML IV PRN (09:30)
--- NOTE | 2017-05-09 10:23 | HHI.NSPN ---
(Griffin Mathis) History Chief Complaint: s/p right craniotomy for subdural hemorrhage evacuation. (Griffin Mathis) Interval History 05/08/17: Pt underwent a right craniotomy for subdural hemorrhage evacuation early this morning. His sedation was held for exam. He opens his eyes. Pupils 3mm bilaterally. Follows commands. He nods he has headache. 05/09/17: Sedated but when held he follows commands. Pupils 3mm bilaterally reactive bilaterally. CODIE drain in place draining well. Intubated. (Grfifin Mathis) System Review Comments Not able to obtain given clinical condition. (Griffin Mathis) Exam Results Vital Signs Date Time Temp Pulse Resp B/P (MAP) Pulse Ox O2 Delivery O2 Flow Rate FiO2 05/09/17 09:26 98.5 60 14 115/58 99 05/09/17 08:18 40 05/08/17 19:00 Mechanical Ventilator 05/08/17 03:25 2.00 Intake and Output 05/09/17 05/09/17 05/09/17 07:59 15:59 23:59 Intake Total 669 ml Output Total 515 ml Balance 154 ml (Griffin Mathis) Physical Examination General: Pt sedated resting comfortably in bed. Eyes: Pupils 3mm bilaterally reactive bilaterally. Resp: Intubated. Pressure controlled rate 15. Peep 5. FiO2 40%. CTA bilaterally Heart: NSR no murmurs Abd: Soft positive bs Skin: CODIE drain putting out large amount of bloody drainage. Muscle: Moves all 4 extremities with generalized weakness. Neuro: Pt sedated. Sedation held for exam. He opens his eyes. Pupils 3mm bilaterally reactive bilaterally. Follows commands. Nods head to some questions. (Griffin Mathis) Lab, Micro, Other Results Last Impressions Pelvis X-Ray 05/08/17 0129 Signed Impressions: Service Date/Time: April 01:50 - CONCLUSION: No acute fracture. The hips are intact. Jacobo Davis MD Maxillofacial CT 05/08/17128 Signed Impressions: Service Date/Time: April 01:58 - CONCLUSION: 1. No acute fracture or malalignment. 2. Air-fluid levels and mucosal thickening in the paranasal sinuses. 3. Moderate to large right subdural hematoma again visualized. Please see brain CT for further details. Jacobo Davis MD Head CT 05/08/17128 Signed Impressions: Service Date/Time: April 01:58 - CONCLUSION: 1. Moderate to large right subdural hematoma with mass effect and midline shift. 2. Bilateral subarachnoid hemorrhage. 3. Large cephalohematoma over the right frontal and parietal bones with no evidence of fracture. Jacobo Davis MD Chest X-Ray 05/08/17128 Signed Impressions: Service Date/Time: April 01:49 - CONCLUSION: No acute disease. Jacobo Davis MD Cervical Spine CT 05/08/17128 Signed Impressions: Service Date/Time: April 01:58 - CONCLUSION: Negative trauma CT. Jacobo Davis MD Laboratory Tests Test 05/08/17 10:36 05/08/17 11:15 05/09/17 03:12 Blood Gas Puncture Site Blood Gas Patient Temperature 98.6 Blood Gas HCO3 23 mmol/L Blood Gas Base Excess -2.0 mmol/L Blood Gas Oxygen Saturation 98 % Arterial Blood pH 7.35 Arterial Blood Partial Pressure CO2 42 mmHg Arterial Blood Partial Pressure O2 179 mmHg Arterial Blood Oxygen Content 15.8 Vol % Arterial Blood Carboxyhemoglobin 0.8 % Arterial Blood Methemoglobin 0.9 % Blood Gas Hemoglobin 11.2 G/DL Oxygen Delivery Device VENTILATOR Blood Gas Ventilator Setting Blood Gas Inspired Oxygen 50 % White Blood Count 6.0 TH/MM3 6.4 TH/MM3 Red Blood Count 3.41 MIL/MM3 2.76 MIL/MM3 Hemoglobin 11.2 GM/DL 9.1 GM/DL Hematocrit 32.2 % 26.4 % Mean Corpuscular Volume 94.4 FL 95.6 FL Mean Corpuscular Hemoglobin 32.9 PG 33.0 PG Mean Corpuscular Hemoglobin Concent 34.9 % 34.5 % Red Cell Distribution Width 15.0 % 15.2 % Platelet Count 124 TH/MM3 88 TH/MM3 Mean Platelet Volume 8.5 FL 8.5 FL Neutrophils (%) (Auto) 77.7 % Lymphocytes (%) (Auto) 11.0 % Monocytes (%) (Auto) 10.9 % Eosinophils (%) (Auto) 0.0 % Basophils (%) (Auto) 0.4 % Neutrophils # (Auto) 4.7 TH/MM3 Lymphocytes # (Auto) 0.7 TH/MM3 Monocytes # (Auto) 0.7 TH/MM3 Eosinophils # (Auto) 0.0 TH/MM3 Basophils # (Auto) 0.0 TH/MM3 CBC Comment DIFF FINAL AUTO DIFF Differential Comment FINAL DIFF MANUAL Prothrombin Time 11.6 SEC 11.5 SEC Prothromb Time International Ratio 1.1 RATIO 1.1 RATIO Activated Partial Thromboplast Time 28.7 SEC 32.1 SEC Blood Urea Nitrogen 15 MG/DL 14 MG/DL Creatinine 0.78 MG/DL 0.60 MG/DL Random Glucose 127 MG/DL 113 MG/DL Total Protein 6.7 GM/DL 5.6 GM/DL Albumin 2.6 GM/DL 2.0 GM/DL Calcium Level 7.7 MG/DL 6.5 MG/DL Phosphorus Level 2.9 MG/DL 1.8 MG/DL Magnesium Level 1.9 MG/DL 1.7 MG/DL Alkaline Phosphatase 49 U/L 37 U/L Aspartate Amino Transf (AST/SGOT) 39 U/L 34 U/L Alanine Aminotransferase (ALT/SGPT) 28 U/L 22 U/L Total Bilirubin 0.4 MG/DL 0.3 MG/DL Sodium Level 136 MEQ/L 142 MEQ/L Potassium Level 4.1 MEQ/L 4.2 MEQ/L Chloride Level 104 MEQ/L 113 MEQ/L Carbon Dioxide Level 25.7 MEQ/L 22.3 MEQ/L Anion Gap 6 MEQ/L 7 MEQ/L Estimat Glomerular Filtration Rate 98 ML/MIN 133 ML/MIN Lactic Acid Level 2.6 mmol/L 1.0 mmol/L Differential Total Cells Counted 100 Neutrophils % (Manual) 70 % Band Neutrophils % 13 % Lymphocytes % 11 % Monocytes % 6 % Neutrophils # (Manual) 5.3 TH/MM3 Atypical Lymphocytes % Toxic Vacuolation PRESENT Platelet Estimate LOW Platelet Morphology Comment NORMAL Basophilic Stippling FAINT Ovalocytes 1+ Acanthocytes OCC Protein Corrected Calcium 7.2 MG/DL (Griffin Mathis) Medical Decision Making Impression and Plan A: 72 y/o M s/p right craniotomy for subdural hemorrhage evacuation. Follow up CT head improved. Thrombocytopenia P: Pt is going to get platelets today. Continue with Neuro checks Continue with critical care. (Griffin Mathis) Attending Statement The exam, history, and the medical decision-making described in the above note were completed with the assistance of the mid-level provider. I reviewed and agree with the findings presented. I attest that I had a [id number] encounter with the patient on the same day, and personally performed and documented my assessment and findings in the medical record. (Sotero Nelson MD) Griffin Mathis May 09, 2017 10:23 Sotero eNlson MD May 09, 2017 16:12
[2017-05-09] MEDS: HYDROCORTISONE 2.5% CREAM 30 GM TOPICAL SCH (11:13)
[2017-05-09] MEDS: cloNIDine HCL 0.1 MG TAB PO PRN (13:20)
[2017-05-09] MEDS: ACETAMINOPHEN/HYDROcodone 325 MG/10 MG TAB PO PRN (13:21)
[2017-05-09] MEDS: niCARdipine INJ 25 MG in SODIUM CHLOR 0.9% 250 ML INJ 240 ML IV PRN (15:07)
[2017-05-09] MEDS: MORPHINE SULFATE 2 MG/ML INJ IV PUSH PRN (16:00)
[2017-05-09] MEDS: NICOTINE 21 MG/24 HR PATCH T-DERMAL SCH (19:00)
[2017-05-09] MEDS: traZODone HCL 100 MG TAB PO SCH ×2 (20:04→20:42)
[2017-05-09] MEDS ORDERED: FUROSEMIDE 40 MG/4 ML VIAL IV PUSH ONE (23:45)
[2017-05-10] VITALS (17 sets, daily range): BP systolic 105–199; BP diastolic 58–99; PULSE 49–70; RESP 12–22; TEMP 97.6–98.8; O2SAT 93–100
[2017-05-10] MEDS: MORPHINE SULFATE 2 MG/ML INJ IV PUSH PRN ×5 (01:03→21:15)
[2017-05-10] MEDS: ONDANSETRON HCL 4 MG/2 ML VIAL IV PUSH PRN (01:03)
[2017-05-10] MEDS: CHLORHEXIDINE GLUCONATE 2 % 1 PACK (2 CLOTHS) TOP SCH (01:12)
[2017-05-10] MEDS: SODIUM CHLOR 0.9% 1000 ML INJ 1,000 ML IV SCH ×2 (03:29→11:57)
[2017-05-10] MEDS: levETIRAcetam INJ 500 MG in SODIUM CHLORIDE 0.9% INJ 100 ML IV SCH ×2 (03:29→15:00)
[2017-05-10 04:28] LABS: HEMATOCRIT 25.1 % (39.0-51.0); HEMOGLOBIN 8.5 GM/DL (13.0-17.0); MEAN CELL VOLUME 95.9 FL (80.0-100.0); MEAN CORPUSCULAR HEMOGLOBIN 32.5 PG (27.0-34.0); MEAN CORPUSCULAR HGB CONC 33.9 % (32.0-36.0); MEAN PLATELET VOLUME 8.7 FL (7.0-11.0); PLATELET COUNT 68 TH/MM3 (150-450); RED BLOOD COUNT 2.61 MIL/MM3 (4.50-5.90); RED CELL DISTRIBUTION WIDTH 15.2 % (11.6-17.2); WHITE BLOOD COUNT 4.7 TH/MM3 (4.0-11.0)
[2017-05-10 05:06] LABS: BICARBONATE 24.4 MEQ/L (21.0-32.0); CALCIUM 7.2 MG/DL (8.5-10.1); CREATININE 0.63 MG/DL (0.60-1.30); PHOSPHORUS 1.6 MG/DL (2.5-4.9)
[2017-05-10 05:30] LABS: CALCIUM-PROTEIN CORRECTED 7.9 MG/DL (8.5-10.1); TOTAL PROTEIN 5.8 GM/DL (6.4-8.2)
[2017-05-10] MEDS: NICOTINE 21 MG/24 HR PATCH T-DERMAL SCH (07:37)
[2017-05-10] MEDS: REMOVE OLD NICODERM (NICOTINE) PATCH T-DERMAL SCH ×2 (07:39→21:00)
[2017-05-10] MEDS: SODIUM CHLORIDE 0.9% FLUSH 10 ML FLUSH IV FLUSH SCH ×2 (07:40→20:37)
[2017-05-10] MEDS: HYDROCORTISONE 2.5% CREAM 30 GM TOPICAL SCH (07:40)
[2017-05-10] MEDS: FAMOTIDINE 20 MG/2 ML VIAL IV PUSH SCH ×2 (09:00→20:36)
[2017-05-10] MEDS ORDERED: SODIUM CHLOR 0.9% 250 ML INJ 250 ML IV ONE (09:30)
--- NOTE | 2017-05-10 10:07 | HHI.NSPN ---
(Griffin Mathis) History Chief Complaint: s/p right craniotomy for subdural hemorrhage evacuation. (Griffin Mathis) Interval History 05/08/17: Pt underwent a right craniotomy for subdural hemorrhage evacuation early this morning. His sedation was held for exam. He opens his eyes. Pupils 3mm bilaterally. Follows commands. He nods he has headache. 05/09/17: Sedated but when held he follows commands. Pupils 3mm bilaterally reactive bilaterally. CODIE drain in place draining well. Intubated. 05/10/17: Pt awake and alert. Complains of headache and nausea. Follows commands well. Answers questions appropriately. (Griffin Mathis) Review of Systems General: Negative for: fever, chills, insomnia Respiratory: Negative for: shortness of breath, cough, sputum Cardiovascular: Negative for: chest pain Gastrointestinal: Negative for: nausea, vomitting, diarrhea, constipation ( Griffin Mathis) Exam Results Vital Signs Date Time Temp Pulse Resp B/P (MAP) Pulse Ox O2 Delivery O2 Flow Rate FiO2 05/10/17 08:19 100 Nasal Cannula 3.00 05/10/17 08:00 61 05/10/17 08:00 98.2 18 124/60 (81) 05/09/17 14:30 40 Intake and Output 05/10/17 05/10/17 05/11/17 08:00 16:00 00:00 Intake Total 30 ml Output Total 2620 ml Balance -2590 ml (Griffin Mathis) Physical Examination General: Pt sedated resting comfortably in bed. Eyes: Pupils 3mm bilaterally reactive bilaterally. Resp: Extubated without dyspnea. CTA bilaterally Heart: NSR no murmurs Abd: Soft positive bs Skin: Incision clean and dry without signs of infection. Muscle: Moves all 4 extremities with generalized weakness. Neuro: Pt awake. Pupils 3mm bilaterally reactive bilaterally. Follows commands. Answers questions appropriately. (Griffin Mathis) Lab, Micro, Other Results Last Impressions Pelvis X-Ray 05/08/17128 Signed Impressions: Service Date/Time: April 01:50 - CONCLUSION: No acute fracture. The hips are intact. Jacobo Davis MD Maxillofacial CT 05/08/17128 Signed Impressions: Service Date/Time: April 01:58 - CONCLUSION: 1. No acute fracture or malalignment. 2. Air-fluid levels and mucosal thickening in the paranasal sinuses. 3. Moderate to large right subdural hematoma again visualized. Please see brain CT for further details. Jacobo Davis MD Head CT 05/08/17128 Signed Impressions: Service Date/Time: April 01:58 - CONCLUSION: 1. Moderate to large right subdural hematoma with mass effect and midline shift. 2. Bilateral subarachnoid hemorrhage. 3. Large cephalohematoma over the right frontal and parietal bones with no evidence of fracture. Jacobo Davis MD Chest X-Ray 05/08/17128 Signed Impressions: Service Date/Time: April 01:49 - CONCLUSION: No acute disease. Jacobo Davis MD Cervical Spine CT 05/08/17128 Signed Impressions: Service Date/Time: April 01:58 - CONCLUSION: Negative trauma CT. Jacobo Davis MD Laboratory Tests Test 05/09/17 15:15 05/10/17 04:15 Blood Gas Puncture Site ART LINE Blood Gas Patient Temperature 98.6 Blood Gas HCO3 20 mmol/L Blood Gas Base Excess -4.9 mmol/L Blood Gas Oxygen Saturation 97 % Arterial Blood pH 7.33 Arterial Blood Partial Pressure CO2 39 mmHg Arterial Blood Partial Pressure O2 109 mmHg Arterial Blood Oxygen Content 13.7 Vol % Arterial Blood Carboxyhemoglobin 0.9 % Arterial Blood Methemoglobin 1.0 % Blood Gas Hemoglobin 9.9 G/DL Oxygen Delivery Device VENTILATOR Blood Gas Ventilator Setting CPAP 5/PS 8 Blood Gas Inspired Oxygen 40 % White Blood Count 4.7 TH/MM3 Red Blood Count 2.61 MIL/MM3 Hemoglobin 8.5 GM/DL Hematocrit 25.1 % Mean Corpuscular Volume 95.9 FL Mean Corpuscular Hemoglobin 32.5 PG Mean Corpuscular Hemoglobin Concent 33.9 % Red Cell Distribution Width 15.2 % Platelet Count 68 TH/MM3 Mean Platelet Volume 8.7 FL Blood Urea Nitrogen 14 MG/DL Creatinine 0.63 MG/DL Random Glucose 96 MG/DL Total Protein 5.8 GM/DL Calcium Level 7.2 MG/DL Phosphorus Level 1.6 MG/DL Magnesium Level 2.0 MG/DL Sodium Level 142 MEQ/L Potassium Level 3.7 MEQ/L Chloride Level 112 MEQ/L Carbon Dioxide Level 24.4 MEQ/L Anion Gap 6 MEQ/L Estimat Glomerular Filtration Rate 126 ML/MIN Protein Corrected Calcium 7.9 MG/DL (Griffin Mathis) Medical Decision Making Impression and Plan A: 72 y/o M s/p right craniotomy for subdural hemorrhage evacuation. Follow up CT head improved. Thrombocytopenia P: Pt is going to get platelets today. Continue to monitor. Continue with Neuro checks Continue with critical care. (Griffin Mathis) Attending Statement The exam, history, and the medical decision-making described in the above note were completed with the assistance of the mid-level provider. I reviewed and agree with the findings presented. I attest that I had a [id number] encounter with the patient on the same day, and personally performed and documented my assessment and findings in the medical record. (Sotero Nelson MD) Griffin Mathis May 10, 2017 10:07 Sotero Nelson MD May 10, 2017 12:24
[2017-05-10] MEDS: SERTRALINE HCL 100 MG TAB PO SCH (10:26)
[2017-05-10] MEDS: DIVALPROEX DR 500 MG TABEC PO SCH ×2 (10:27→20:36)
[2017-05-10] MEDS: ACETAMINOPHEN/HYDROcodone 325 MG/10 MG TAB PO PRN ×2 (10:27→21:08)
[2017-05-10] MEDS: PANTOPRAZOLE SOD 40 MG DELAYED RELEASE TAB PO SCH (10:27)
[2017-05-10] MEDS: CHOLECALCIFEROL (VIT D3) 400 UNIT TAB PO SCH (10:27)
[2017-05-10] MEDS: DOCUSATE SODIUM 50 MG/SENNA 8.6 MG TAB PO SCH ×2 (10:27→21:00)
[2017-05-10] MEDS: CALCIUM/VITAMIN D 250 MG/125 U TAB PO SCH ×2 (10:28→21:07)
[2017-05-10] MEDS: LISINOPRIL 10 MG TAB PO SCH (10:28)
[2017-05-10] MEDS: ALPRAZolam 0.5 MG TAB PO PRN ×3 (13:52→21:08)
--- NOTE | 2017-05-10 14:20 | HHI.CCPN ---
Subjective Remarks/Hospital Course 05/08: 72-year-old male , currently at the rehabilitation facility, who fell from his bed and has a swelling to his right temporal area. He has arrived C- collared and boarded complains also back pain and mid thoracic. Patient is hard of hearing and slightly demented. His main complaint is fall from bed swelling to his head and back neck just prior to arrival. CT of the head reveals moderate to large right subdural hematoma with a mass effect and midline shift. Bilateral subarachnoid humeri which, a large cephalohematoma over the right frontal and parietal bones with no evidence of fracture. The patient is admitted to critical care services with a neurosurgical consultation in place. 05/09: No events overnight. Patient remains intubated and sedated, on low FiO2 requirements. He is on low-dose norepinephrine currently at 2 mics per minute. T-max of 98.5. 05/10: No events over the night. Patient did well postextubation. He continues to complain of generalized pain and some headache. Asking for his daughter. Afebrile. Objective Vital Signs Date Time Temp Pulse Resp B/P (MAP) Pulse Ox O2 Delivery O2 Flow Rate FiO2 05/10/17 14:00 61 05/10/17 13:05 98.0 16 140/68 98 05/10/17 08:19 Nasal Cannula 3.00 05/09/17 14:30 40 Intake and Output 05/10/17 05/10/17 05/11/17 08:00 16:00 00:00 Intake Total 30 ml 437 ml Output Total 2620 ml Balance -2590 ml 437 ml Result Diagram: 05/10/17 0415 05/10/17 0415 Other Results Laboratory Tests Test 05/09/17 15:15 Blood Gas Puncture Site ART LINE Blood Gas Patient Temperature 98.6 Blood Gas HCO3 20 mmol/L (22-26) Blood Gas Base Excess -4.9 mmol/L (-2-2) Blood Gas Oxygen Saturation 97 % (90-100) Arterial Blood pH 7.33 (7.380-7.420) Arterial Blood Partial Pressure CO2 39 mmHg (38-42) Arterial Blood Partial Pressure O2 109 mmHg (61-120) Arterial Blood Oxygen Content 13.7 Vol % (12.0-20.0) Arterial Blood Carboxyhemoglobin 0.9 % (0-4) Arterial Blood Methemoglobin 1.0 % (0-2) Blood Gas Hemoglobin 9.9 G/DL (12.0-16.0) Oxygen Delivery Device VENTILATOR Blood Gas Ventilator Setting CPAP 5/PS 8 Blood Gas Inspired Oxygen 40 % Imaging Last Impressions Pelvis X-Ray 05/08/17128 Signed Impressions: Service Date/Time: April 01:50 - CONCLUSION: No acute fracture. The hips are intact. Jacobo Davis MD Maxillofacial CT 05/08/17128 Signed Impressions: Service Date/Time: April 01:58 - CONCLUSION: 1. No acute fracture or malalignment. 2. Air-fluid levels and mucosal thickening in the paranasal sinuses. 3. Moderate to large right subdural hematoma again visualized. Please see brain CT for further details. Jacobo Davis MD Head CT 05/08/17128 Signed Impressions: Service Date/Time: April 01:58 - CONCLUSION: 1. Moderate to large right subdural hematoma with mass effect and midline shift. 2. Bilateral subarachnoid hemorrhage. 3. Large cephalohematoma over the right frontal and parietal bones with no evidence of fracture. Jacobo Davis MD Chest X-Ray 05/08/17128 Signed Impressions: Service Date/Time: April 01:49 - CONCLUSION: No acute disease. Jacobo Davis MD Cervical Spine CT 05/08/17128 Signed Impressions: Service Date/Time: April 01:58 - CONCLUSION: Negative trauma CT. Jacobo Davis MD Last 24 hours Impressions Pelvis X-Ray 05/08/17128 Signed Impressions: Service Date/Time: April 01:50 - CONCLUSION: No acute fracture. The hips are intact. Jacobo Davis MD Maxillofacial CT 05/08/17128 Signed Impressions: Service Date/Time: April 01:58 - CONCLUSION: 1. No acute fracture or malalignment. 2. Air-fluid levels and mucosal thickening in the paranasal sinuses. 3. Moderate to large right subdural hematoma again visualized. Please see brain CT for further details. Jacobo Davis MD Head CT 05/08/17128 Signed Impressions: Service Date/Time: April 01:58 - CONCLUSION: 1. Moderate to large right subdural hematoma with mass effect and midline shift. 2. Bilateral subarachnoid hemorrhage. 3. Large cephalohematoma over the right frontal and parietal bones with no evidence of fracture. Jacobo Davis MD Chest X-Ray 05/08/17128 Signed Impressions: Service Date/Time: April 01:49 - CONCLUSION: No acute disease. Jacobo Davis MD Cervical Spine CT 05/08/17128 Signed Impressions: Service Date/Time: April 01:58 - CONCLUSION: Negative trauma CT. Jacobo Davis MD Objective Remarks General - elderly gentleman, awake, ill-appearing, in no distress HEENT - pupils are equal, reactive, sclerae are anicteric, neck is supple, no neck rigidity, no JVD, no carotid bruit, clean surgical incision site with jessica, CODIE with sero-sanguinous drainage, right IJ central line (05/08) -site is clean, moist mucous membranes, no thrush CV - regular heart sounds, no murmurs Chest - clear b/l, good air entry, no wheezes Abdomen soft, non-tender, not distended, BS present, no hepatomegaly, no splenomegaly Skin -right sided orbital hematoma Extremities - warm, no edema, + peripheral pulses, no clubbing Neuro -awake and alert, pupils are equal and reactive, smile is symmetric, extraocular movements are intact, tongue is midline, shrugs shoulders, motor 5/ 5 overall extremities, sensation is intact A/P Assessment and Plan 1. Subdural hematoma status post evacuation, postop day 2 , doing well 2. Small intraparenchymal and traumatic subarachnoid hemorrhage 3. Acute postop respiratory insufficiency, on minimal FiO2 requirements, successfully extubated on 05/09 4. Chronic thrombocytopenia -still requiring transfusion 5. Hypotension -resolved, he remains off norepinephrine 6. Seizure disorder -no recurrent seizures so far 7. History of alcohol abuse -no signs of withdrawal 8. Depression 1. Continue neuro checks per protocol 2. Supplemental O2 to keep SPO2 above 92% 3. Receiving platelet transfusion per neurosurgery 4. On Depakote and Keppra, no evidence of seizure so far 5. On Zoloft 6. Pain control 7. Monitor for alcohol withdrawal 8. GI prophylaxis with famotidine 9. On diet 10. DVT prophylaxis with SCDs. Hold heparin due to thrombocytopenia and intracranial bleed 11. DNR Refugio Sims MD May 10, 2017 14:20
[2017-05-10] MEDS: LABETALOL HCL 100 MG/20 ML VIAL IV PUSH PRN (20:30)
[2017-05-10] MEDS: traZODone HCL 100 MG TAB PO SCH (21:00)
[2017-05-10] MEDS: cloNIDine HCL 0.1 MG TAB PO PRN (21:02)
[2017-05-10] MEDS: niCARdipine INJ 25 MG in SODIUM CHLOR 0.9% 250 ML INJ 240 ML IV PRN (21:33)
[2017-05-11] VITALS (14 sets, daily range): BP systolic 127–170; BP diastolic 69–91; PULSE 60–82; RESP 12–22; TEMP 97.6–98.2; O2SAT 94–100
[2017-05-11] MEDS: levETIRAcetam INJ 500 MG in SODIUM CHLORIDE 0.9% INJ 100 ML IV SCH ×2 (03:00→14:31)
[2017-05-11] MEDS: SODIUM CHLOR 0.9% 1000 ML INJ 1,000 ML IV SCH ×2 (03:30→09:08)
[2017-05-11] MEDS: CHLORHEXIDINE GLUCONATE 2 % 1 PACK (2 CLOTHS) TOP SCH (04:00)
[2017-05-11 04:03] LABS: BICARBONATE 33.4 MEQ/L (21.0-32.0); CALCIUM 7.2 MG/DL (8.5-10.1); CREATININE 0.7 MG/DL (0.60-1.30); MAGNESIUM 2.3 MG/DL (1.5-2.5)
[2017-05-11 04:26] LABS: HEMATOCRIT 25.3 % (39.0-51.0); HEMOGLOBIN 8.8 GM/DL (13.0-17.0); MEAN CELL VOLUME 95.5 FL (80.0-100.0); MEAN CORPUSCULAR HEMOGLOBIN 33.4 PG (27.0-34.0); MEAN PLATELET VOLUME 8.4 FL (7.0-11.0); PLATELET COUNT 110 TH/MM3 (150-450); RED BLOOD COUNT 2.65 MIL/MM3 (4.50-5.90); RED CELL DISTRIBUTION WIDTH 15.2 % (11.6-17.2); WHITE BLOOD COUNT 5.7 TH/MM3 (4.0-11.0)
[2017-05-11 04:33] LABS: TOTAL PROTEIN 7.2 GM/DL (6.4-8.2)
[2017-05-11 04:38] LABS: CALCIUM-PROTEIN CORRECTED 7.2 MG/DL (8.5-10.1)
[2017-05-11] MEDS: ACETAMINOPHEN/HYDROcodone 325 MG/10 MG TAB PO PRN ×3 (05:52→20:42)
[2017-05-11] MEDS: SERTRALINE HCL 100 MG TAB PO SCH (08:46)
[2017-05-11] MEDS: DIVALPROEX DR 500 MG TABEC PO SCH ×2 (08:46→20:10)
[2017-05-11] MEDS: PANTOPRAZOLE SOD 40 MG DELAYED RELEASE TAB PO SCH (08:46)
[2017-05-11] MEDS: CHOLECALCIFEROL (VIT D3) 400 UNIT TAB PO SCH (08:46)
[2017-05-11] MEDS: CALCIUM/VITAMIN D 250 MG/125 U TAB PO SCH ×2 (08:46→20:10)
[2017-05-11] MEDS: DOCUSATE SODIUM 50 MG/SENNA 8.6 MG TAB PO SCH ×2 (08:46→20:10)
[2017-05-11] MEDS: LISINOPRIL 10 MG TAB PO SCH (08:47)
[2017-05-11] MEDS: NICOTINE 21 MG/24 HR PATCH T-DERMAL SCH (08:47)
[2017-05-11] MEDS: HYDROCORTISONE 2.5% CREAM 30 GM TOPICAL SCH (08:47)
[2017-05-11] MEDS: SODIUM CHLORIDE 0.9% FLUSH 10 ML FLUSH IV FLUSH SCH ×2 (08:47→20:10)
[2017-05-11] MEDS: FAMOTIDINE 20 MG/2 ML VIAL IV PUSH SCH ×2 (08:47→20:10)
[2017-05-11] MEDS: MORPHINE SULFATE 2 MG/ML INJ IV PUSH PRN ×4 (08:48→23:00)
[2017-05-11] MEDS: POTASSIUM CHLOR 20 MEQ PREMIX 100 ML IV PRN (09:05)
[2017-05-11] MEDS: ALPRAZolam 0.5 MG TAB PO PRN (11:26)
--- NOTE | 2017-05-11 11:28 | HHI.CCPN ---
Subjective Remarks/Hospital Course 05/08: 72-year-old male , currently at the rehabilitation facility, who fell from his bed and has a swelling to his right temporal area. He has arrived C- collared and boarded complains also back pain and mid thoracic. Patient is hard of hearing and slightly demented. His main complaint is fall from bed swelling to his head and back neck just prior to arrival. CT of the head reveals moderate to large right subdural hematoma with a mass effect and midline shift. Bilateral subarachnoid humeri which, a large cephalohematoma over the right frontal and parietal bones with no evidence of fracture. The patient is admitted to critical care services with a neurosurgical consultation in place. 05/09: No events overnight. Patient remains intubated and sedated, on low FiO2 requirements. He is on low-dose norepinephrine currently at 2 mics per minute. T-max of 98.5. 05/10: No events over the night. Patient did well postextubation. He continues to complain of generalized pain and some headache. Asking for his daughter. Afebrile. 05/11: Over the night the patient became hypertensive requiring nicardipine drip , currently off. Asking for pain medication. Afebrile, with a T-max of 97.8. Objective Vital Signs Date Time Temp Pulse Resp B/P (MAP) Pulse Ox O2 Delivery O2 Flow Rate FiO2 05/11/17 10:00 63 05/11/17 08:04 95 Nasal Cannula 2.00 05/11/17 08:00 97.6 22 137/85 (102) 05/09/17 14:30 40 Intake and Output 05/11/17 05/11/17 05/12/17 08:00 16:00 00:00 Intake Total 50 ml 355 ml Output Total 1950 ml Balance -1900 ml 355 ml Result Diagram: 05/11/17 0410 05/11/17 0300 Imaging Last Impressions Pelvis X-Ray 05/08/17128 Signed Impressions: Service Date/Time: April 01:50 - CONCLUSION: No acute fracture. The hips are intact. Jacobo Davis MD Maxillofacial CT 05/08/17128 Signed Impressions: Service Date/Time: April 01:58 - CONCLUSION: 1. No acute fracture or malalignment. 2. Air-fluid levels and mucosal thickening in the paranasal sinuses. 3. Moderate to large right subdural hematoma again visualized. Please see brain CT for further details. Jacobo Davis MD Head CT 05/08/17128 Signed Impressions: Service Date/Time: April 01:58 - CONCLUSION: 1. Moderate to large right subdural hematoma with mass effect and midline shift. 2. Bilateral subarachnoid hemorrhage. 3. Large cephalohematoma over the right frontal and parietal bones with no evidence of fracture. Jacobo Davis MD Chest X-Ray 05/08/17128 Signed Impressions: Service Date/Time: April 01:49 - CONCLUSION: No acute disease. Jacobo Davis MD Cervical Spine CT 05/08/17128 Signed Impressions: Service Date/Time: April 01:58 - CONCLUSION: Negative trauma CT. Jacobo Davis MD Last 24 hours Impressions Pelvis X-Ray 05/08/17128 Signed Impressions: Service Date/Time: April 01:50 - CONCLUSION: No acute fracture. The hips are intact. Jacobo Davis MD Maxillofacial CT 05/08/17128 Signed Impressions: Service Date/Time: April 01:58 - CONCLUSION: 1. No acute fracture or malalignment. 2. Air-fluid levels and mucosal thickening in the paranasal sinuses. 3. Moderate to large right subdural hematoma again visualized. Please see brain CT for further details. Jacobo Davis MD Head CT 05/08/17128 Signed Impressions: Service Date/Time: April 01:58 - CONCLUSION: 1. Moderate to large right subdural hematoma with mass effect and midline shift. 2. Bilateral subarachnoid hemorrhage. 3. Large cephalohematoma over the right frontal and parietal bones with no evidence of fracture. Jacobo Davis MD Chest X-Ray 05/08/17128 Signed Impressions: Service Date/Time: April 01:49 - CONCLUSION: No acute disease. Jacobo Davis MD Cervical Spine CT 05/08/17128 Signed Impressions: Service Date/Time: April 01:58 - CONCLUSION: Negative trauma CT. Jacobo Davis MD Objective Remarks General - elderly gentleman, awake, ill-appearing, in no distress HEENT - pupils equal, reactive, sclerae anicteric, neck supple, no JVD, clean surgical incision site with jessica, CODIE with sero-sanguinous drainage, right IJ central line (05/08) -site clean CV - regular S1 and S2, no murmurs Chest - clear b/l, good air entry, no wheezes Abdomen - soft, non-tender, not distended, BS present Skin -right sided orbital hematoma Extremities - warm, no edema, + peripheral pulses Neuro -awake and alert, pupils equal and reactive, smile symmetric, extraocular movements are intact, tongue is midline, shrugs shoulders, motor 5/5 overall extremities, sensation is intact A/P Assessment and Plan 1. Subdural hematoma status post evacuation, postop day 3 , doing well 2. Small intraparenchymal and traumatic subarachnoid hemorrhage 3. Acute postop respiratory insufficiency, on minimal FiO2 requirements, successfully extubated on 05/09 4. Chronic thrombocytopenia -significantly improved, today up to 110 5. Hypotension -resolved, he remains off norepinephrine 6. Hypertension over the night requiring nicardipine now off 7. Seizure disorder -no recurrent seizures so far 8. History of alcohol abuse -no signs of withdrawal 9. Depression 1. Continue neuro checks per protocol 2. Supplemental O2 to keep SPO2 above 92% 3. On Depakote and Keppra, no evidence of seizure so far 4. On Zoloft 5. Pain control 6. Monitor for alcohol withdrawal 7. GI prophylaxis with famotidine 8. On diet 9. DVT prophylaxis with SCDs. Hold heparin due to thrombocytopenia and intracranial bleed 10. DNR Transfer out of [facility] when okay with neurosurgery. Refugio Sims MD May 11, 2017 11:28
--- NOTE | 2017-05-11 11:30 | HHI.NSPN ---
(Griffin Mathis) History Chief Complaint: s/p right craniotomy for subdural hemorrhage evacuation. (Griffin Mathis) Interval History 05/08/17: Pt underwent a right craniotomy for subdural hemorrhage evacuation early this morning. His sedation was held for exam. He opens his eyes. Pupils 3mm bilaterally. Follows commands. He nods he has headache. 05/09/17: Sedated but when held he follows commands. Pupils 3mm bilaterally reactive bilaterally. CODIE drain in place draining well. Intubated. 05/10/17: Pt awake and alert. Complains of headache and nausea. Follows commands well. Answers questions appropriately. 05/11/17: Patient awake and alert. He is confused but pleasant. He complains of headache. He complains of nausea. He is following commands. (Griffin Mathis) Review of Systems General: Negative for: fever, chills, insomnia Respiratory: Negative for: shortness of breath, cough, sputum Cardiovascular: Negative for: chest pain Gastrointestinal: Positive for: nausea, Negative for: vomitting, diarrhea, constipation (Griffin Mathis) Exam Results Vital Signs Date Time Temp Pulse Resp B/P (MAP) Pulse Ox O2 Delivery O2 Flow Rate FiO2 05/11/17 10:00 63 05/11/17 08:04 95 Nasal Cannula 2.00 05/11/17 08:00 97.6 22 137/85 (102) 05/09/17 14:30 40 Intake and Output 05/11/17 05/11/17 05/11/17 07:59 15:59 23:59 Intake Total 50 ml 355 ml Output Total 1950 ml Balance -1900 ml 355 ml (Griffin Mathis) Physical Examination General: Pt awakens to voice resting comfortably in bed. Eyes: Pupils 3mm bilaterally reactive bilaterally. Resp: Extubated without dyspnea. Mild to moderate coarse bs bilaterally this am. Heart: NSR no murmurs Abd: Soft positive bs Skin: Incision clean and dry without signs of infection. Muscle: Moves all 4 extremities with generalized weakness. Neuro: Pt awake. Pupils 3mm bilaterally reactive bilaterally. Follows commands. Answers questions appropriately. (Griffin Mathis) Lab, Micro, Other Results Last Impressions Pelvis X-Ray 05/08/17128 Signed Impressions: Service Date/Time: April 01:50 - CONCLUSION: No acute fracture. The hips are intact. Jacobo Davis MD Maxillofacial CT 05/08/17128 Signed Impressions: Service Date/Time: April 01:58 - CONCLUSION: 1. No acute fracture or malalignment. 2. Air-fluid levels and mucosal thickening in the paranasal sinuses. 3. Moderate to large right subdural hematoma again visualized. Please see brain CT for further details. Jacobo Davis MD Head CT 05/08/17128 Signed Impressions: Service Date/Time: April 01:58 - CONCLUSION: 1. Moderate to large right subdural hematoma with mass effect and midline shift. 2. Bilateral subarachnoid hemorrhage. 3. Large cephalohematoma over the right frontal and parietal bones with no evidence of fracture. Jacobo Davis MD Chest X-Ray 05/08/17128 Signed Impressions: Service Date/Time: April 01:49 - CONCLUSION: No acute disease. Jacobo Davis MD Cervical Spine CT 05/08/17128 Signed Impressions: Service Date/Time: April 01:58 - CONCLUSION: Negative trauma CT. Jacobo Davis MD Laboratory Tests Test 05/11/17 03:00 05/11/17 04:10 Blood Urea Nitrogen 17 MG/DL Creatinine 0.70 MG/DL Random Glucose 164 MG/DL Total Protein 7.2 GM/DL Calcium Level 7.2 MG/DL Phosphorus Level 4.0 MG/DL Magnesium Level 2.3 MG/DL Sodium Level 139 MEQ/L Potassium Level 3.4 MEQ/L Chloride Level 102 MEQ/L Carbon Dioxide Level 33.4 MEQ/L Anion Gap 4 MEQ/L Estimat Glomerular Filtration Rate 111 ML/MIN Protein Corrected Calcium 7.2 MG/DL White Blood Count 5.7 TH/MM3 Red Blood Count 2.65 MIL/MM3 Hemoglobin 8.8 GM/DL Hematocrit 25.3 % Mean Corpuscular Volume 95.5 FL Mean Corpuscular Hemoglobin 33.4 PG Mean Corpuscular Hemoglobin Concent 35.0 % Red Cell Distribution Width 15.2 % Platelet Count 110 TH/MM3 Mean Platelet Volume 8.4 FL 05/11/17 05/11/17 05/12/17 14:59 22:59 06:59 Intake Total 355 ml Balance 355 ml IV Total 355 ml (Griffin Mathis) Medical Decision Making Impression and Plan A: 72 y/o M s/p right craniotomy for subdural hemorrhage evacuation. Follow up CT head improved. Thrombocytopenia improved today. P: Continue with Neuro checks Continue with critical care. (Griffin Mathis) Attending Statement The exam, history, and the medical decision-making described in the above note were completed with the assistance of the mid-level provider. I reviewed and agree with the findings presented. I attest that I had a [id number] encounter with the patient on the same day, and personally performed and documented my assessment and findings in the medical record. (Sotero Nelson MD) Griffin Mathis May 11, 2017 11:29 Sotero Nelson MD May 11, 2017 14:17
[2017-05-11] MEDS: traZODone HCL 100 MG TAB PO SCH (20:10)
[2017-05-11] MEDS: REMOVE OLD NICODERM (NICOTINE) PATCH T-DERMAL SCH (20:11)
[2017-05-11] MEDS: cloNIDine HCL 0.1 MG TAB PO PRN (22:51)
[2017-05-12] VITALS (13 sets, daily range): BP systolic 99–166; BP diastolic 54–88; PULSE 60–88; RESP 14–27; TEMP 97.7–98.8; O2SAT 95–100
[2017-05-12] MEDS: levETIRAcetam INJ 500 MG in SODIUM CHLORIDE 0.9% INJ 100 ML IV SCH ×2 (02:58→15:00)
[2017-05-12] MEDS: SODIUM CHLOR 0.9% 1000 ML INJ 1,000 ML IV SCH (03:20)
[2017-05-12] MEDS: CHLORHEXIDINE GLUCONATE 2 % 1 PACK (2 CLOTHS) TOP SCH (04:00)
[2017-05-12 04:20] LABS: HEMATOCRIT 24.7 % (39.0-51.0); HEMOGLOBIN 8.4 GM/DL (13.0-17.0); MEAN CELL VOLUME 95.1 FL (80.0-100.0); MEAN CORPUSCULAR HEMOGLOBIN 32.5 PG (27.0-34.0); MEAN CORPUSCULAR HGB CONC 34.2 % (32.0-36.0); MEAN PLATELET VOLUME 8.6 FL (7.0-11.0); PLATELET COUNT 114 TH/MM3 (150-450); RED BLOOD COUNT 2.59 MIL/MM3 (4.50-5.90); RED CELL DISTRIBUTION WIDTH 15.4 % (11.6-17.2)
[2017-05-12 04:46] LABS: BICARBONATE 30.3 MEQ/L (21.0-32.0); CALCIUM 7.8 MG/DL (8.5-10.1); CREATININE 0.57 MG/DL (0.60-1.30); MAGNESIUM 1.8 MG/DL (1.5-2.5); PHOSPHORUS 1.7 MG/DL (2.5-4.9)
[2017-05-12] MEDS: ACETAMINOPHEN/HYDROcodone 325 MG/10 MG TAB PO PRN ×2 (06:34→20:24)
[2017-05-12] MEDS: SODIUM CHLORIDE 0.9% FLUSH 10 ML FLUSH IV FLUSH SCH ×2 (09:00→20:24)
[2017-05-12] MEDS: DIVALPROEX DR 500 MG TABEC PO SCH (09:00)
[2017-05-12] MEDS: PANTOPRAZOLE SOD 40 MG DELAYED RELEASE TAB PO SCH (09:00)
[2017-05-12] MEDS: CHOLECALCIFEROL (VIT D3) 400 UNIT TAB PO SCH (09:27)
[2017-05-12] MEDS: LISINOPRIL 10 MG TAB PO SCH (09:27)
[2017-05-12] MEDS: CALCIUM/VITAMIN D 250 MG/125 U TAB PO SCH ×2 (09:27→20:23)
[2017-05-12] MEDS: SERTRALINE HCL 100 MG TAB PO SCH (09:27)
[2017-05-12] MEDS: DOCUSATE SODIUM 50 MG/SENNA 8.6 MG TAB PO SCH ×2 (09:28→20:23)
[2017-05-12] MEDS: NICOTINE 21 MG/24 HR PATCH T-DERMAL SCH (09:28)
[2017-05-12] MEDS: FAMOTIDINE 20 MG/2 ML VIAL IV PUSH SCH ×2 (09:29→20:24)
[2017-05-12] MEDS: MORPHINE SULFATE 2 MG/ML INJ IV PUSH PRN ×3 (09:29→22:43)
[2017-05-12] MEDS ORDERED: LIDOCAINE 2%/EPINEPHrine 1:100,000 20ML MDV INFIL ONE (11:45)
--- NOTE | 2017-05-12 14:18 | HHI.CCPN ---
Subjective Remarks/Hospital Course 05/08: 72-year-old male , currently at the rehabilitation facility, who fell from his bed and has a swelling to his right temporal area. He has arrived C- collared and boarded complains also back pain and mid thoracic. Patient is hard of hearing and slightly demented. His main complaint is fall from bed swelling to his head and back neck just prior to arrival. CT of the head reveals moderate to large right subdural hematoma with a mass effect and midline shift. Bilateral subarachnoid humeri which, a large cephalohematoma over the right frontal and parietal bones with no evidence of fracture. The patient is admitted to critical care services with a neurosurgical consultation in place. 05/09: No events overnight. Patient remains intubated and sedated, on low FiO2 requirements. He is on low-dose norepinephrine currently at 2 mics per minute. T-max of 98.5. 05/10: No events over the night. Patient did well postextubation. He continues to complain of generalized pain and some headache. Asking for his daughter. Afebrile. 05/11: Over the night the patient became hypertensive requiring nicardipine drip , currently off. Asking for pain medication. Afebrile, with a T-max of 97.8. 05/12: neuro exam unchanged from prior documented. remains sedate but arousable. protecting airway. off nicardipine. blood pressure under adequate control. coughs to command. tolerating soft diet. limited ROS negative, although difficult to obtain due to mental status. Objective Vital Signs Date Time Temp Pulse Resp B/P (MAP) Pulse Ox O2 Delivery O2 Flow Rate FiO2 05/12/17 12:00 98.4 60 27 139/62 (87) 100 05/12/17 07:00 Nasal Cannula 3.00 05/09/17 14:30 40 Intake and Output 05/12/17 05/12/17 05/13/17 08:00 16:00 00:00 Intake Total 50 ml Output Total 1640 ml Balance -1590 ml Result Diagram: 05/12/17 0400 05/12/17 0400 Imaging Last Impressions Pelvis X-Ray 05/08/17 0129 Signed Impressions: Service Date/Time: April 01:50 - CONCLUSION: No acute fracture. The hips are intact. Jacobo Davis MD Maxillofacial CT 05/08/17128 Signed Impressions: Service Date/Time: April 01:58 - CONCLUSION: 1. No acute fracture or malalignment. 2. Air-fluid levels and mucosal thickening in the paranasal sinuses. 3. Moderate to large right subdural hematoma again visualized. Please see brain CT for further details. Jacobo Davis MD Head CT 05/08/17128 Signed Impressions: Service Date/Time: April 01:58 - CONCLUSION: 1. Moderate to large right subdural hematoma with mass effect and midline shift. 2. Bilateral subarachnoid hemorrhage. 3. Large cephalohematoma over the right frontal and parietal bones with no evidence of fracture. Jacobo Davis MD Chest X-Ray 05/08/17128 Signed Impressions: Service Date/Time: April 01:49 - CONCLUSION: No acute disease. Jacobo Davis MD Cervical Spine CT 05/08/17128 Signed Impressions: Service Date/Time: April 01:58 - CONCLUSION: Negative trauma CT. Jacobo Davis MD Last 24 hours Impressions Pelvis X-Ray 05/08/17128 Signed Impressions: Service Date/Time: April 01:50 - CONCLUSION: No acute fracture. The hips are intact. Jacobo Davis MD Maxillofacial CT 05/08/17128 Signed Impressions: Service Date/Time: April 01:58 - CONCLUSION: 1. No acute fracture or malalignment. 2. Air-fluid levels and mucosal thickening in the paranasal sinuses. 3. Moderate to large right subdural hematoma again visualized. Please see brain CT for further details. Jacobo Davis MD Head CT 05/08/17128 Signed Impressions: Service Date/Time: April 01:58 - CONCLUSION: 1. Moderate to large right subdural hematoma with mass effect and midline shift. 2. Bilateral subarachnoid hemorrhage. 3. Large cephalohematoma over the right frontal and parietal bones with no evidence of fracture. Jacobo Davis MD Chest X-Ray 05/08/17128 Signed Impressions: Service Date/Time: April 01:49 - CONCLUSION: No acute disease. Jacobo Davis MD Cervical Spine CT 05/08/17 0129 Signed Impressions: Service Date/Time: April 01:58 - CONCLUSION: Negative trauma CT. Jacobo Davis MD Objective Remarks General - elderly gentleman, awake, ill-appearing, in no distress HEENT - pupils equal, reactive, sclerae anicteric, neck supple, no JVD, clean surgical incision site with jessica, CODIE with sero-sanguinous drainage, right IJ central line (05/08) -site clean CV - normal rate, regular rhythm. sinus. Chest - equal chest rise. unlabored. nc o2. Abdomen - soft, non-tender, not distended, no guarding. Skin -right sided orbital hematoma Extremities - warm, no edema, + peripheral pulses Neuro -awake but somnolent, arousable, pupils equal and reactive, smile symmetric, extraocular movements are intact, tongue is midline, shrugs shoulders , motor 5/5 overall extremities, sensation is intact A/P Assessment and Plan 1. Acute encephalopathy secondary to SDH 2. Subdural hematoma status post evacuation, postop day 4 , doing well 3. Small intraparenchymal and traumatic subarachnoid hemorrhage 4. Acute postop respiratory insufficiency, on minimal FiO2 requirements, successfully extubated on 05/09 5. Chronic thrombocytopenia -significantly improved 6. Hypotension -resolved, he remains off norepinephrine 7. Hypertension - improved 8. Seizure disorder -no recurrent seizures so far 9. History of alcohol abuse -no signs of withdrawal 10. Depression 1. Continue neuro checks per protocol 2. Supplemental O2 to keep SPO2 above 92% 3. On Depakote and Keppra, no evidence of seizure so far: will change to liquid formulation for ease of swallowing. 4. On Zoloft 5. Pain control 6. Monitor for alcohol withdrawal 7. GI prophylaxis with famotidine 8. On diet 9. DVT prophylaxis with SCDs. Hold heparin due to thrombocytopenia and intracranial bleed 10. DNR Transfer out of [facility] when okay with neurosurgery. Hardik Bauer MD May 12, 2017 14:18
--- NOTE | 2017-05-12 16:37 | HHI.NSPN ---
(Griffin Mathis) History Chief Complaint: s/p right craniotomy for subdural hemorrhage evacuation. (Griffin Mathis) Interval History 05/08/17: Pt underwent a right craniotomy for subdural hemorrhage evacuation early this morning. His sedation was held for exam. He opens his eyes. Pupils 3mm bilaterally. Follows commands. He nods he has headache. 05/09/17: Sedated but when held he follows commands. Pupils 3mm bilaterally reactive bilaterally. CODIE drain in place draining well. Intubated. 05/10/17: Pt awake and alert. Complains of headache and nausea. Follows commands well. Answers questions appropriately. 05/11/17: Patient awake and alert. He is confused but pleasant. He complains of headache. He complains of nausea. He is following commands. 05/12/17: Pt awakens to voice. Complains of headache. Pt refused PT today. Not cooperating with nurses also refusing po meds. (Griffin Mathis) Review of Systems General: Negative for: fever, chills, insomnia Respiratory: Negative for: shortness of breath, cough, sputum Cardiovascular: Negative for: chest pain Gastrointestinal: Positive for: nausea, Negative for: vomitting, diarrhea, constipation (Griffin Mathis) Exam Results Vital Signs Date Time Temp Pulse Resp B/P (MAP) Pulse Ox O2 Delivery O2 Flow Rate FiO2 05/12/17 14:00 66 05/12/17 12:00 98.4 27 139/62 (87) 100 05/12/17 07:00 Nasal Cannula 3.00 05/09/17 14:30 40 Intake and Output 05/12/17 05/12/17 05/13/17 08:00 16:00 00:00 Intake Total 50 ml Output Total 1640 ml Balance -1590 ml (Griffin Mathis) Physical Examination General: Pt awakens to voice resting comfortably in bed. Eyes: Pupils 3mm bilaterally reactive bilaterally. Resp: Extubated without dyspnea. CTA bilaterally. Heart: NSR no murmurs Abd: Soft positive bs Skin: Incision clean and dry without signs of infection. CODIE drain in place. Muscle: Moves all 4 extremities with generalized weakness. Neuro: Pt awake. Pupils 3mm bilaterally reactive bilaterally. Follows commands. Answers questions appropriately. (Griffin Mathis) Lab, Micro, Other Results Last Impressions Pelvis X-Ray 05/08/17128 Signed Impressions: Service Date/Time: April 01:50 - CONCLUSION: No acute fracture. The hips are intact. Jacobo Davis MD Maxillofacial CT 05/08/17128 Signed Impressions: Service Date/Time: April 01:58 - CONCLUSION: 1. No acute fracture or malalignment. 2. Air-fluid levels and mucosal thickening in the paranasal sinuses. 3. Moderate to large right subdural hematoma again visualized. Please see brain CT for further details. Jacobo Davis MD Head CT 05/08/17128 Signed Impressions: Service Date/Time: April 01:58 - CONCLUSION: 1. Moderate to large right subdural hematoma with mass effect and midline shift. 2. Bilateral subarachnoid hemorrhage. 3. Large cephalohematoma over the right frontal and parietal bones with no evidence of fracture. Jacobo Davis MD Chest X-Ray 05/08/17128 Signed Impressions: Service Date/Time: April 01:49 - CONCLUSION: No acute disease. Jacobo Davis MD Cervical Spine CT 05/08/17128 Signed Impressions: Service Date/Time: April 01:58 - CONCLUSION: Negative trauma CT. Jacobo Davis MD Laboratory Tests Test 05/12/17 04:00 White Blood Count 4.0 TH/MM3 Red Blood Count 2.59 MIL/MM3 Hemoglobin 8.4 GM/DL Hematocrit 24.7 % Mean Corpuscular Volume 95.1 FL Mean Corpuscular Hemoglobin 32.5 PG Mean Corpuscular Hemoglobin Concent 34.2 % Red Cell Distribution Width 15.4 % Platelet Count 114 TH/MM3 Mean Platelet Volume 8.6 FL Blood Urea Nitrogen 9 MG/DL Creatinine 0.57 MG/DL Random Glucose 83 MG/DL Calcium Level 7.8 MG/DL Phosphorus Level 1.7 MG/DL Magnesium Level 1.8 MG/DL Sodium Level 145 MEQ/L Potassium Level 3.5 MEQ/L Chloride Level 112 MEQ/L Carbon Dioxide Level 30.3 MEQ/L Anion Gap 3 MEQ/L Estimat Glomerular Filtration Rate 141 ML/MIN (Griffin Mathis) Medical Decision Making Impression and Plan A: 72 y/o M s/p right craniotomy for subdural hemorrhage evacuation. Follow up CT head improved. Thrombocytopenia improved. P: Continue with Neuro checks Continue with critical care. CODIE drain discontinued. The CODIE site was cleaned with Betadine. Lidocaine 2 % with epi was used for local anesthesia, approximately 2cc was used. CODIE drain suction released and CODIE drain was removed. 3 jessica were placed and there was no further CSF drainage. Sterile field and precautions were used. (Griffin Mathis) Attending Statement The exam, history, and the medical decision-making described in the above note were completed with the assistance of the mid-level provider. I reviewed and agree with the findings presented. I attest that I had a [id number] encounter with the patient on the same day, and personally performed and documented my assessment and findings in the medical record. (Sotero Nelson MD) Griffin Mathis May 12, 2017 16:37 Sotero Nelson MD May 12, 2017 17:54
[2017-05-12] MEDS: VALPROIC ACID SYRUP 250 MG/5 ML UDC PO SCH (20:23)
[2017-05-12] MEDS: traZODone HCL 100 MG TAB PO SCH (20:24)
[2017-05-12] MEDS: REMOVE OLD NICODERM (NICOTINE) PATCH T-DERMAL SCH (21:00)
[2017-05-12] MEDS: LABETALOL HCL 100 MG/20 ML VIAL IV PUSH PRN ×2 (21:26→22:39)
[2017-05-12] MEDS: HYDROCORTISONE 2.5% CREAM 30 GM TOPICAL SCH (22:18)
[2017-05-13] VITALS (14 sets, daily range): BP systolic 137–180; BP diastolic 70–91; PULSE 60–78; RESP 16–20; TEMP 97.8–98.3; O2SAT 88–97
[2017-05-13] MEDS: LABETALOL HCL 100 MG/20 ML VIAL IV PUSH PRN (01:17)
[2017-05-13] MEDS: ALPRAZolam 0.5 MG TAB PO PRN (01:34)
[2017-05-13] MEDS: CHLORHEXIDINE GLUCONATE 2 % 1 PACK (2 CLOTHS) TOP SCH ×2 (02:52→19:55)
[2017-05-13] MEDS: levETIRAcetam INJ 500 MG in SODIUM CHLORIDE 0.9% INJ 100 ML IV SCH ×2 (03:07→14:07)
[2017-05-13] MEDS: MORPHINE SULFATE 2 MG/ML INJ IV PUSH PRN ×4 (03:07→21:25)
[2017-05-13] MEDS: SODIUM CHLOR 0.9% 1000 ML INJ 1,000 ML IV SCH ×2 (03:10→15:05)
[2017-05-13] MEDS: niCARdipine INJ 25 MG in SODIUM CHLOR 0.9% 250 ML INJ 240 ML IV PRN ×2 (03:42→21:26)
[2017-05-13 06:51] LABS: HEMATOCRIT 26.6 % (39.0-51.0); HEMOGLOBIN 9.2 GM/DL (13.0-17.0); MEAN CELL VOLUME 94.4 FL (80.0-100.0); MEAN CORPUSCULAR HEMOGLOBIN 32.7 PG (27.0-34.0); MEAN CORPUSCULAR HGB CONC 34.7 % (32.0-36.0); MEAN PLATELET VOLUME 8.2 FL (7.0-11.0); PLATELET COUNT 114 TH/MM3 (150-450); RED BLOOD COUNT 2.82 MIL/MM3 (4.50-5.90); RED CELL DISTRIBUTION WIDTH 15.1 % (11.6-17.2)
[2017-05-13 07:06] LABS: BICARBONATE 28.2 MEQ/L (21.0-32.0); CALCIUM 8.2 MG/DL (8.5-10.1); CREATININE 0.61 MG/DL (0.60-1.30); MAGNESIUM 1.7 MG/DL (1.5-2.5); PHOSPHORUS 1.9 MG/DL (2.5-4.9)
[2017-05-13] MEDS: VALPROIC ACID SYRUP 250 MG/5 ML UDC PO SCH ×2 (08:37→21:26)
[2017-05-13] MEDS: CALCIUM/VITAMIN D 250 MG/125 U TAB PO SCH ×2 (08:37→21:26)
[2017-05-13] MEDS: SERTRALINE HCL 100 MG TAB PO SCH (08:37)
[2017-05-13] MEDS: FAMOTIDINE 20 MG/2 ML VIAL IV PUSH SCH ×2 (08:37→21:25)
[2017-05-13] MEDS: LISINOPRIL 10 MG TAB PO SCH (08:38)
[2017-05-13] MEDS: NICOTINE 21 MG/24 HR PATCH T-DERMAL SCH (08:38)
[2017-05-13] MEDS: CHOLECALCIFEROL (VIT D3) 400 UNIT TAB PO SCH (08:38)
[2017-05-13] MEDS: PANTOPRAZOLE SOD 40 MG DELAYED RELEASE TAB PO SCH (08:38)
[2017-05-13] MEDS: DOCUSATE SODIUM 50 MG/SENNA 8.6 MG TAB PO SCH ×2 (08:38→21:27)
[2017-05-13] MEDS: SODIUM CHLORIDE 0.9% FLUSH 10 ML FLUSH IV FLUSH SCH ×2 (08:39→21:24)
--- NOTE | 2017-05-13 10:24 | HHI.CCPN ---
Subjective Remarks/Hospital Course 05/08: 72-year-old male , currently at the rehabilitation facility, who fell from his bed and has a swelling to his right temporal area. He has arrived C- collared and boarded complains also back pain and mid thoracic. Patient is hard of hearing and slightly demented. His main complaint is fall from bed swelling to his head and back neck just prior to arrival. CT of the head reveals moderate to large right subdural hematoma with a mass effect and midline shift. Bilateral subarachnoid humeri which, a large cephalohematoma over the right frontal and parietal bones with no evidence of fracture. The patient is admitted to critical care services with a neurosurgical consultation in place. 05/09: No events overnight. Patient remains intubated and sedated, on low FiO2 requirements. He is on low-dose norepinephrine currently at 2 mics per minute. T-max of 98.5. 05/10: No events over the night. Patient did well postextubation. He continues to complain of generalized pain and some headache. Asking for his daughter. Afebrile. 05/11: Over the night the patient became hypertensive requiring nicardipine drip , currently off. Asking for pain medication. Afebrile, with a T-max of 97.8. 05/12: neuro exam unchanged from prior documented. remains sedate but arousable. protecting airway. off nicardipine. blood pressure under adequate control. coughs to command. tolerating soft diet. limited ROS negative, although difficult to obtain due to mental status. 05/13: CODIE drain pulled yesterday. overnight became severely hypertensive requiring cardene, as well as now pacer firing for intermittent bradycardia. more somnolent than yesterday, although pupils reactive and equal. CT head ordered to eval for re-accumulation of SDH. Objective Vital Signs Date Time Temp Pulse Resp B/P (MAP) Pulse Ox O2 Delivery O2 Flow Rate FiO2 05/13/17 07:00 91 Nasal Cannula 3.00 05/13/17 06:00 64 05/13/17 04:00 97.8 16 180/91 (120) 05/12/17 20:50 21 Intake and Output 05/13/17 05/13/17 05/14/17 08:00 16:00 00:00 Intake Total 1205 ml Output Total 1200 ml Balance 5 ml Result Diagram: 05/13/17 0615 05/13/17 0615 Imaging Last Impressions Pelvis X-Ray 05/08/17128 Signed Impressions: Service Date/Time: April 01:50 - CONCLUSION: No acute fracture. The hips are intact. Jacobo Davis MD Maxillofacial CT 05/08/17128 Signed Impressions: Service Date/Time: April 01:58 - CONCLUSION: 1. No acute fracture or malalignment. 2. Air-fluid levels and mucosal thickening in the paranasal sinuses. 3. Moderate to large right subdural hematoma again visualized. Please see brain CT for further details. Jacobo Davis MD Head CT 05/08/17128 Signed Impressions: Service Date/Time: April 01:58 - CONCLUSION: 1. Moderate to large right subdural hematoma with mass effect and midline shift. 2. Bilateral subarachnoid hemorrhage. 3. Large cephalohematoma over the right frontal and parietal bones with no evidence of fracture. Jacobo Davis MD Chest X-Ray 05/08/17128 Signed Impressions: Service Date/Time: April 01:49 - CONCLUSION: No acute disease. Jacobo Davis MD Cervical Spine CT 05/08/17128 Signed Impressions: Service Date/Time: April 01:58 - CONCLUSION: Negative trauma CT. Jacobo Davis MD Last 24 hours Impressions Pelvis X-Ray 05/08/17128 Signed Impressions: Service Date/Time: April 01:50 - CONCLUSION: No acute fracture. The hips are intact. Jacobo Davis MD Maxillofacial CT 05/08/17128 Signed Impressions: Service Date/Time: April 01:58 - CONCLUSION: 1. No acute fracture or malalignment. 2. Air-fluid levels and mucosal thickening in the paranasal sinuses. 3. Moderate to large right subdural hematoma again visualized. Please see brain CT for further details. Jacobo Davis MD Head CT 05/08/17128 Signed Impressions: Service Date/Time: April 01:58 - CONCLUSION: 1. Moderate to large right subdural hematoma with mass effect and midline shift. 2. Bilateral subarachnoid hemorrhage. 3. Large cephalohematoma over the right frontal and parietal bones with no evidence of fracture. Jacobo Davis MD Chest X-Ray 05/08/17128 Signed Impressions: Service Date/Time: April 01:49 - CONCLUSION: No acute disease. Jacobo Davis MD Cervical Spine CT 05/08/17128 Signed Impressions: Service Date/Time: April 01:58 - CONCLUSION: Negative trauma CT. Jacobo Davis MD Objective Remarks General - elderly gentleman, awake, ill-appearing, in no distress HEENT - pupils equal, reactive, sclerae anicteric, neck supple, no JVD, clean surgical incision site with jessica, CODIE with sero-sanguinous drainage, right IJ central line (05/08) -site clean CV - normal rate, regular rhythm. sinus. Chest - equal chest rise. unlabored. nc o2. Abdomen - soft, non-tender, not distended, no guarding. Skin -right sided orbital hematoma Extremities - warm, no edema, + peripheral pulses Neuro -awake but somnolent, arousable, pupils equal and reactive, smile symmetric, extraocular movements are intact, tongue is midline, shrugs shoulders , motor 5/5 overall extremities, sensation is intact A/P Assessment and Plan 1. Acute encephalopathy secondary to SDH, worsening today 2. Subdural hematoma status post evacuation, postop day 5 3. Small intraparenchymal and traumatic subarachnoid hemorrhage 4. Acute postop respiratory insufficiency, on minimal FiO2 requirements, successfully extubated on 05/09 5. Chronic thrombocytopenia -significantly improved 6. Hypotension -resolved, he remains off norepinephrine 7. Hypertension - improved 8. Seizure disorder -no recurrent seizures so far 9. History of alcohol abuse -no signs of withdrawal 10. Depression 11. new somnolence 13. Hypertensive Emergency - now on nicardipine 1. head CT to eval for re-accumulation of fluid 2. nsgy has been notified 3. frequent neuro checks 4. avoid long-acting sedatives. 5. Supplemental O2 to keep SPO2 above 92% 6. On Depakote and Keppra, no evidence of seizure so far: will change to liquid formulation for ease of swallowing. 7. On Zoloft 8. Pain control 9. GI prophylaxis with famotidine 10. On diet 11. DVT prophylaxis with SCDs. Hold heparin due to thrombocytopenia and intracranial bleed 12. DNR Hardik Bauer MD May 13, 2017 10:24
--- NOTE | 2017-05-13 11:00 | HHI.NSPN ---
(Griffin Mathis) History Chief Complaint: s/p right craniotomy for subdural hemorrhage evacuation. (Griffin Mathis) Interval History 05/08/17: Pt underwent a right craniotomy for subdural hemorrhage evacuation early this morning. His sedation was held for exam. He opens his eyes. Pupils 3mm bilaterally. Follows commands. He nods he has headache. 05/09/17: Sedated but when held he follows commands. Pupils 3mm bilaterally reactive bilaterally. CODIE drain in place draining well. Intubated. 05/10/17: Pt awake and alert. Complains of headache and nausea. Follows commands well. Answers questions appropriately. 05/11/17: Patient awake and alert. He is confused but pleasant. He complains of headache. He complains of nausea. He is following commands. 05/12/17: Pt awakens to voice. Complains of headache. Pt refused PT today. Not cooperating with nurses also refusing po meds. 05/13/17: Pt awake and alert. Complains of pain all over. Pt seems more cooperative with staff today. Follows commands well. (Griffin Mathis) Review of Systems General: Negative for: fever, chills, insomnia Respiratory: Negative for: shortness of breath, cough, sputum Cardiovascular: Negative for: chest pain Gastrointestinal: Negative for: nausea, vomitting, diarrhea, constipation ( Griffin Mathis) Exam Results Vital Signs Date Time Temp Pulse Resp B/P (MAP) Pulse Ox O2 Delivery O2 Flow Rate FiO2 05/13/17 07:00 91 Nasal Cannula 3.00 05/13/17 06:00 64 05/13/17 04:00 97.8 16 180/91 (120) 05/12/17 20:50 21 Intake and Output 05/13/17 05/13/17 05/14/17 08:00 16:00 00:00 Intake Total 1205 ml Output Total 1200 ml Balance 5 ml (Griffin Mathis) Physical Examination General: Pt awakens to voice resting comfortably in bed. Eyes: Pupils 3mm bilaterally reactive bilaterally. Resp: Extubated without dyspnea. CTA bilaterally. Heart: NSR no murmurs Abd: Soft positive bs Skin: Incision clean and dry without signs of infection. Muscle: Moves all 4 extremities with generalized weakness. Neuro: Pt awake. Pupils 3mm bilaterally reactive bilaterally. Follows commands. Answers questions appropriately. Speech clear and appropriate. (Griffin Mathis) Lab, Micro, Other Results Last Impressions Pelvis X-Ray 05/08/17128 Signed Impressions: Service Date/Time: April 01:50 - CONCLUSION: No acute fracture. The hips are intact. Jacobo Davis MD Maxillofacial CT 05/08/17128 Signed Impressions: Service Date/Time: April 01:58 - CONCLUSION: 1. No acute fracture or malalignment. 2. Air-fluid levels and mucosal thickening in the paranasal sinuses. 3. Moderate to large right subdural hematoma again visualized. Please see brain CT for further details. Jacobo Davis MD Head CT 05/08/17128 Signed Impressions: Service Date/Time: April 01:58 - CONCLUSION: 1. Moderate to large right subdural hematoma with mass effect and midline shift. 2. Bilateral subarachnoid hemorrhage. 3. Large cephalohematoma over the right frontal and parietal bones with no evidence of fracture. Jacobo Davis MD Chest X-Ray 05/08/17128 Signed Impressions: Service Date/Time: April 01:49 - CONCLUSION: No acute disease. Jacobo Davis MD Cervical Spine CT 05/08/17128 Signed Impressions: Service Date/Time: April 01:58 - CONCLUSION: Negative trauma CT. Jacobo Davis MD Laboratory Tests Test 05/13/17 06:15 White Blood Count 4.0 TH/MM3 Red Blood Count 2.82 MIL/MM3 Hemoglobin 9.2 GM/DL Hematocrit 26.6 % Mean Corpuscular Volume 94.4 FL Mean Corpuscular Hemoglobin 32.7 PG Mean Corpuscular Hemoglobin Concent 34.7 % Red Cell Distribution Width 15.1 % Platelet Count 114 TH/MM3 Mean Platelet Volume 8.2 FL Blood Urea Nitrogen 7 MG/DL Creatinine 0.61 MG/DL Random Glucose 114 MG/DL Calcium Level 8.2 MG/DL Phosphorus Level 1.9 MG/DL Magnesium Level 1.7 MG/DL Sodium Level 141 MEQ/L Potassium Level 3.1 MEQ/L Chloride Level 107 MEQ/L Carbon Dioxide Level 28.2 MEQ/L Anion Gap 6 MEQ/L Estimat Glomerular Filtration Rate 130 ML/MIN (Griffin Mathis) Medical Decision Making Impression and Plan A: 72 y/o M s/p right craniotomy for subdural hemorrhage evacuation. Follow up CT head improved. Thrombocytopenia improved. Follow up CT head today report not available but reviewed stable right subdural hemorrhage 1cm in width which is improved from preop. No significant midline shift. Will take time for brain to expand completely. P: Continue with Neuro checks Continue with critical care. Continue with blood pressure control (Griffin Mathis) Attending Statement The exam, history, and the medical decision-making described in the above note were completed with the assistance of the mid-level provider. I reviewed and agree with the findings presented. I attest that I had a [id number] encounter with the patient on the same day, and personally performed and documented my assessment and findings in the medical record. (Sotero Nelson MD) Griffin Mathis May 13, 2017 11:00 Sotero Nelson MD May 13, 2017 12:39
--- NOTE | 2017-05-13 11:02 | RADRPT ---
EXAM DATE/TIME: 05/13/2017 10:37 [facility] COMPARISON: CT BRAIN W/O CONTRAST, May 08, 2017, 14:19. INDICATIONS : Altered mental status. Lethargic today, drain pulled yesterday. RADIATION DOSE: 45.34 CTDIvol (mGy) MEDICAL HISTORY : Cerebrovascular disease. Cardiovascular disease Chronic obstructive pulmonary disease.Hypertension. Hep C. SURGICAL HISTORY : Pacemaker. Craniotomy. ENCOUNTER: Subsequent ACUITY: 4 - 6 days PAIN SCALE: 0/10 LOCATION: cranial TECHNIQUE: Multiple contiguous axial images were obtained of the head. Using automated exposure control and adj ustment of the mA and/or kV according to patient size, radiation dose was kept as low as reasonably a chievable to obtain optimal diagnostic quality images. DICOM format image data is available electro nically for review and comparison. FINDINGS: CEREBRUM: Right-sided subdural hemorrhage and pneumocephaly again seen. The subdural hemorrhage measures 1.4 cm in width. There is decreasing subarachnoid hemorrhage bilaterally. Intraventricular hemorrhage again noted. Small intraparenchymal hemorrhage along the right frontal para-falcine region measuring 1.1, 0.8 and 0.8 cm. There is also a tiny intraparenchymal hemorrhage in the left occipital lobe measuring 7 mm. Minimal hemorrhage along the left sylvian fissure is less prominent. The ventricles are normal for age. No evidence of midline shift or acute infarction. POSTERIOR FOSSA: The cerebellum and brainstem are intact. The 4th ventricle is midline. The cerebellopontine angle i s unremarkable. EXTRACRANIAL: The visualized portion of the orbits is intact. SKULL: Right craniotomy. CONCLUSION: 1. Right subdural hemorrhage slightly less prominent measuring 14 mm. No significant midline shift. 2. Evolving small intraparenchymal hemorrhages with decreasing subarachnoid hemorrhage. Griffin Gurrola MD on May 13, 2017 at 10:56 Board Certified Radiologist. This report was verified electronically.
[2017-05-13] MEDS: POTASSIUM CHLOR 20 MEQ PREMIX 100 ML IV PRN (13:00)
[2017-05-13] MEDS: ACETAMINOPHEN/HYDROcodone 325 MG/10 MG TAB PO PRN (13:54)
[2017-05-13] MEDS: cloNIDine HCL 0.1 MG TAB PO PRN (13:58)
[2017-05-13] MEDS: ONDANSETRON HCL 4 MG/2 ML VIAL IV PUSH PRN (21:25)
[2017-05-13] MEDS: traZODone HCL 100 MG TAB PO SCH (21:26)
[2017-05-13] MEDS: REMOVE OLD NICODERM (NICOTINE) PATCH T-DERMAL SCH (21:27)
[2017-05-14] VITALS (13 sets, daily range): BP systolic 115–174; BP diastolic 78–97; PULSE 60–89; RESP 16–27; TEMP 97.8–98.5; O2SAT 92–98
[2017-05-14] MEDS: SODIUM CHLOR 0.9% 1000 ML INJ 1,000 ML IV SCH ×2 (03:53→17:17)
[2017-05-14] MEDS: levETIRAcetam INJ 500 MG in SODIUM CHLORIDE 0.9% INJ 100 ML IV SCH ×2 (03:53→14:12)
[2017-05-14] MEDS: POTASSIUM CHLOR 20 MEQ PREMIX 100 ML IV PRN ×2 (04:20→11:42)
[2017-05-14] MEDS: cloNIDine HCL 0.1 MG TAB PO PRN (04:42)
[2017-05-14] MEDS: MORPHINE SULFATE 2 MG/ML INJ IV PUSH PRN ×3 (04:42→18:57)
[2017-05-14] MEDS: SODIUM CHLORIDE 0.9% FLUSH 10 ML FLUSH IV FLUSH SCH ×2 (08:20→21:32)
[2017-05-14] MEDS: FAMOTIDINE 20 MG/2 ML VIAL IV PUSH SCH (08:20)
[2017-05-14] MEDS: PANTOPRAZOLE SOD 40 MG DELAYED RELEASE TAB PO SCH (08:21)
[2017-05-14] MEDS: CALCIUM/VITAMIN D 250 MG/125 U TAB PO SCH ×2 (08:21→21:32)
[2017-05-14] MEDS: SERTRALINE HCL 100 MG TAB PO SCH (08:21)
[2017-05-14] MEDS: DOCUSATE SODIUM 50 MG/SENNA 8.6 MG TAB PO SCH ×2 (08:21→21:32)
[2017-05-14] MEDS: VALPROIC ACID SYRUP 250 MG/5 ML UDC PO SCH ×2 (08:21→21:32)
[2017-05-14] MEDS: CHOLECALCIFEROL (VIT D3) 400 UNIT TAB PO SCH (08:21)
[2017-05-14] MEDS: NICOTINE 21 MG/24 HR PATCH T-DERMAL SCH (08:22)
[2017-05-14] MEDS: HYDROCORTISONE 2.5% CREAM 30 GM TOPICAL SCH (08:23)
[2017-05-14] MEDS: LISINOPRIL 10 MG TAB PO SCH (08:23)
--- NOTE | 2017-05-14 09:59 | HHI.CCPN ---
Subjective Remarks/Hospital Course 05/08: 72-year-old male , currently at the rehabilitation facility, who fell from his bed and has a swelling to his right temporal area. He has arrived C- collared and boarded complains also back pain and mid thoracic. Patient is hard of hearing and slightly demented. His main complaint is fall from bed swelling to his head and back neck just prior to arrival. CT of the head reveals moderate to large right subdural hematoma with a mass effect and midline shift. Bilateral subarachnoid humeri which, a large cephalohematoma over the right frontal and parietal bones with no evidence of fracture. The patient is admitted to critical care services with a neurosurgical consultation in place. 05/09: No events overnight. Patient remains intubated and sedated, on low FiO2 requirements. He is on low-dose norepinephrine currently at 2 mics per minute. T-max of 98.5. 05/10: No events over the night. Patient did well postextubation. He continues to complain of generalized pain and some headache. Asking for his daughter. Afebrile. 05/11: Over the night the patient became hypertensive requiring nicardipine drip , currently off. Asking for pain medication. Afebrile, with a T-max of 97.8. 05/12: neuro exam unchanged from prior documented. remains sedate but arousable. protecting airway. off nicardipine. blood pressure under adequate control. coughs to command. tolerating soft diet. limited ROS negative, although difficult to obtain due to mental status. 05/13: CODIE drain pulled yesterday. overnight became severely hypertensive requiring cardene, as well as now pacer firing for intermittent bradycardia. more somnolent than yesterday, although pupils reactive and equal. CT head ordered to eval for re-accumulation of SDH. 05/14: Conversant but confused. Needs additional oral BP medication; bradycardic and already on lisinopril 10 mg daily. Will add hydralazine. Objective Vital Signs Date Time Temp Pulse Resp B/P (MAP) Pulse Ox O2 Delivery O2 Flow Rate FiO2 05/14/17 07:56 95 21 05/14/17 07:00 Room Air 05/14/17 06:00 68 05/14/17 04:47 18 05/14/17 04:00 98.0 174/97 (122) 05/13/17 23:00 2.00 Intake and Output 05/14/17 05/14/17 05/15/17 08:00 16:00 00:00 Intake Total 1165 ml Output Total 800 ml Balance 365 ml Result Diagram: 05/13/17 0615 05/13/17 2200 Imaging Last Impressions Pelvis X-Ray 05/08/17128 Signed Impressions: Service Date/Time: April 01:50 - CONCLUSION: No acute fracture. The hips are intact. Jacobo Davis MD Maxillofacial CT 05/08/17128 Signed Impressions: Service Date/Time: April 01:58 - CONCLUSION: 1. No acute fracture or malalignment. 2. Air-fluid levels and mucosal thickening in the paranasal sinuses. 3. Moderate to large right subdural hematoma again visualized. Please see brain CT for further details. Jacobo Davis MD Head CT 05/08/17128 Signed Impressions: Service Date/Time: April 01:58 - CONCLUSION: 1. Moderate to large right subdural hematoma with mass effect and midline shift. 2. Bilateral subarachnoid hemorrhage. 3. Large cephalohematoma over the right frontal and parietal bones with no evidence of fracture. Jacobo Davis MD Chest X-Ray 05/08/17128 Signed Impressions: Service Date/Time: April 01:49 - CONCLUSION: No acute disease. Jacobo Davis MD Cervical Spine CT 05/08/17128 Signed Impressions: Service Date/Time: April 01:58 - CONCLUSION: Negative trauma CT. Jacobo Davis MD Last 24 hours Impressions Pelvis X-Ray 05/08/17128 Signed Impressions: Service Date/Time: April 01:50 - CONCLUSION: No acute fracture. The hips are intact. Jacobo Davis MD Maxillofacial CT 05/08/17128 Signed Impressions: Service Date/Time: April 01:58 - CONCLUSION: 1. No acute fracture or malalignment. 2. Air-fluid levels and mucosal thickening in the paranasal sinuses. 3. Moderate to large right subdural hematoma again visualized. Please see brain CT for further details. Jacobo Davis MD Head CT 05/08/17128 Signed Impressions: Service Date/Time: April 01:58 - CONCLUSION: 1. Moderate to large right subdural hematoma with mass effect and midline shift. 2. Bilateral subarachnoid hemorrhage. 3. Large cephalohematoma over the right frontal and parietal bones with no evidence of fracture. Jacobo Davis MD Chest X-Ray 05/08/17128 Signed Impressions: Service Date/Time: April 01:49 - CONCLUSION: No acute disease. Jacobo Davis MD Cervical Spine CT 05/08/17128 Signed Impressions: Service Date/Time: April 01:58 - CONCLUSION: Negative trauma CT. Jacobo Davis MD Objective Remarks General - elderly gentleman, awake, ill-appearing, in no distress HEENT - pupils equal, reactive, sclerae anicteric, neck supple, no JVD, clean surgical incision site with jessica, right IJ central line (05/08) -site clean CV - normal rate, regular rhythm. sinus. intermittently bradycardic. Chest - equal chest rise. non-labored pattern. nc o2. Abdomen - soft, non-tender, not distended, no guarding. BS active Skin -right sided orbital hematoma Extremities - warm, no edema, + peripheral pulses Neuro -awake but lethargic, arousable, pupils 2 mm equal and reactive, smile symmetric, extraocular movements are intact, tongue is midline, shrugs shoulders , motor 5/5 overall extremities, sensation is intact. quiet. A/P Assessment and Plan 1. Acute encephalopathy secondary to SDH, worsening today 2. Subdural hematoma status post evacuation, postop day 6 3. Small intraparenchymal and traumatic subarachnoid hemorrhage 4. Acute postop respiratory insufficiency, on minimal FiO2 requirements, successfully extubated on 05/09 5. Chronic thrombocytopenia -significantly improved 6. Hypotension -resolved, he remains off norepinephrine 7. Hypertension - improved 8. Seizure disorder -no recurrent seizures so far 9. History of alcohol abuse -no signs of withdrawal 10. Depression 11. new somnolence 13. Hypertensive Emergency - now on nicardipine 1. head CT to eval for re-accumulation of fluid 2. nsgy has been notified of increasing lethargy 3. add hydralazine 50 mg po bid 4. avoid long-acting sedatives. 5. Supplemental O2 to keep SPO2 above 92% 6. On Depakote and Keppra, no evidence of seizure so far: will change to liquid formulation for ease of swallowing. 7. On Zoloft 8. Pain control 9. GI prophylaxis with famotidine 10. On diet 11. DVT prophylaxis with SCDs. Hold heparin due to thrombocytopenia and intracranial bleed 12. DNR status Yoel Lopez MD May 14, 2017 09:59
[2017-05-14] MEDS: hydrALAZINE HCL 50 MG TAB PO SCH ×2 (10:00→21:31)
--- NOTE | 2017-05-14 17:11 | HHI.NSPN ---
(Griffin Mathis) History Chief Complaint: s/p right craniotomy for subdural hemorrhage evacuation. (Griffin Mathis) Interval History 05/08/17: Pt underwent a right craniotomy for subdural hemorrhage evacuation early this morning. His sedation was held for exam. He opens his eyes. Pupils 3mm bilaterally. Follows commands. He nods he has headache. 05/09/17: Sedated but when held he follows commands. Pupils 3mm bilaterally reactive bilaterally. CODIE drain in place draining well. Intubated. 05/10/17: Pt awake and alert. Complains of headache and nausea. Follows commands well. Answers questions appropriately. 05/11/17: Patient awake and alert. He is confused but pleasant. He complains of headache. He complains of nausea. He is following commands. 05/12/17: Pt awakens to voice. Complains of headache. Pt refused PT today. Not cooperating with nurses also refusing po meds. 05/13/17: Pt awake and alert. Complains of pain all over. Pt seems more cooperative with staff today. Follows commands well. 05/14/17: Pt states he doesn't feel good but doesn't elaborate much. He reportedly isn't eating much. He complains of headache and soreness all over. He is willing to drink Ensure. (Griffin Mathis) Review of Systems General: Negative for: fever, chills, insomnia Respiratory: Negative for: shortness of breath, cough, sputum Cardiovascular: Negative for: chest pain Gastrointestinal: Negative for: nausea, vomitting, diarrhea, constipation ( Griffin Mathis) Exam Results Vital Signs Date Time Temp Pulse Resp B/P (MAP) Pulse Ox O2 Delivery O2 Flow Rate FiO2 05/14/17 16:00 89 05/14/17 16:00 98.4 21 142/83 (102) 93 05/14/17 07:56 21 05/14/17 07:00 Room Air 05/13/17 23:00 2.00 Intake and Output 05/14/17 05/14/17 05/15/17 08:00 16:00 00:00 Intake Total 1165 ml Output Total 800 ml 1600 ml Balance 365 ml -1600 ml (Griffin Mathis) Physical Examination General: Pt awakens to voice resting comfortably in bed. Eyes: Pupils 3mm bilaterally reactive bilaterally. Resp: Extubated without dyspnea. CTA bilaterally. Heart: NSR no murmurs Abd: Soft positive bs Skin: Incision clean and dry without signs of infection. Muscle: Moves all 4 extremities with generalized weakness. Neuro: Pt awake. Pupils 3mm bilaterally reactive bilaterally. Follows commands. Answers questions appropriately. Speech clear and appropriate. (Griffin Mathis) Lab, Micro, Other Results Last Impressions Head CT 05/13/17 0000 Signed Impressions: Service Date/Time: Saturday, May 13, 2017 10:37 - CONCLUSION: 1. Right subdural hemorrhage slightly less prominent measuring 14 mm. No significant midline shift. 2. Evolving small intraparenchymal hemorrhages with decreasing subarachnoid hemorrhage. Griffin Gurrola MD Pelvis X-Ray 05/08/17128 Signed Impressions: Service Date/Time: April 01:50 - CONCLUSION: No acute fracture. The hips are intact. Jacobo Davis MD Maxillofacial CT 05/08/17128 Signed Impressions: Service Date/Time: April 01:58 - CONCLUSION: 1. No acute fracture or malalignment. 2. Air-fluid levels and mucosal thickening in the paranasal sinuses. 3. Moderate to large right subdural hematoma again visualized. Please see brain CT for further details. Jacobo Davis MD Chest X-Ray 05/08/17128 Signed Impressions: Service Date/Time: April 01:49 - CONCLUSION: No acute disease. Jacobo Davis MD Cervical Spine CT 05/08/17128 Signed Impressions: Service Date/Time: April 01:58 - CONCLUSION: Negative trauma CT. Jacobo Davis MD Laboratory Tests Test 05/13/17 22:00 05/14/17 10:45 Potassium Level 3.4 MEQ/L 3.2 MEQ/L 2/05/14/17 05/15/17 15:00 23:00 07:00 Output Total 800 ml 800 ml Balance -800 ml -800 ml Output Urine Total 800 ml 800 ml (Griffin Mathis) Medical Decision Making Impression and Plan A: 72 y/o M s/p right craniotomy for subdural hemorrhage evacuation. Follow up CT head improved. Thrombocytopenia improved. Follow up CT head reviewed stable right subdural hemorrhage 1cm in width which is improved from preop. No significant midline shift. Will take time for brain to expand completely. P: Continue with Neuro checks Continue with critical care. Continue with blood pressure control Supplement diet with ensure 1 can tid nectar thickened per speech. (Griffin Mathis) Attending Statement The exam, history, and the medical decision-making described in the above note were completed with the assistance of the mid-level provider. I reviewed and agree with the findings presented. I attest that I had a [id number] encounter with the patient on the same day, and personally performed and documented my assessment and findings in the medical record. (Sotero Nelson MD) Griffin Mathis May 14, 2017 17:11 Sotero Nelson MD May 14, 2017 18:15
[2017-05-14] MEDS: CHLORHEXIDINE GLUCONATE 2 % 1 PACK (2 CLOTHS) TOP SCH (19:36)
[2017-05-14] MEDS: FAMOTIDINE 20 MG TAB PO SCH (21:31)
[2017-05-14] MEDS: traZODone HCL 100 MG TAB PO SCH (21:32)
[2017-05-14] MEDS: REMOVE OLD NICODERM (NICOTINE) PATCH T-DERMAL SCH (21:33)
[2017-05-15] VITALS (12 sets, daily range): BP systolic 139–170; BP diastolic 85–96; PULSE 60–88; RESP 14–21; TEMP 97.7–98.4; O2SAT 91–98
[2017-05-15] MEDS: levETIRAcetam INJ 500 MG in SODIUM CHLORIDE 0.9% INJ 100 ML IV SCH ×2 (02:57→15:00)
[2017-05-15] MEDS: SODIUM CHLOR 0.9% 1000 ML INJ 1,000 ML IV SCH ×2 (02:57→15:13)
[2017-05-15] MEDS: MORPHINE SULFATE 2 MG/ML INJ IV PUSH PRN ×6 (02:58→23:37)
[2017-05-15 06:08] LABS: BICARBONATE 25.2 MEQ/L (21.0-32.0); CALCIUM 8.2 MG/DL (8.5-10.1); CREATININE 0.56 MG/DL (0.60-1.30)
[2017-05-15] MEDS: POTASSIUM CHLOR 20 MEQ PREMIX 100 ML IV PRN ×2 (06:19→08:00)
[2017-05-15] MEDS: FAMOTIDINE 20 MG TAB PO SCH ×2 (08:01→20:52)
[2017-05-15] MEDS: CALCIUM/VITAMIN D 250 MG/125 U TAB PO SCH ×2 (08:01→20:52)
[2017-05-15] MEDS: CHOLECALCIFEROL (VIT D3) 400 UNIT TAB PO SCH (08:01)
[2017-05-15] MEDS: NICOTINE 21 MG/24 HR PATCH T-DERMAL SCH (08:01)
[2017-05-15] MEDS: hydrALAZINE HCL 50 MG TAB PO SCH ×2 (08:02→20:52)
[2017-05-15] MEDS: VALPROIC ACID SYRUP 250 MG/5 ML UDC PO SCH ×2 (08:02→20:51)
[2017-05-15] MEDS: LISINOPRIL 10 MG TAB PO SCH (08:02)
[2017-05-15] MEDS: SERTRALINE HCL 100 MG TAB PO SCH (08:02)
[2017-05-15] MEDS: SODIUM CHLORIDE 0.9% FLUSH 10 ML FLUSH IV FLUSH SCH ×2 (08:03→20:53)
[2017-05-15] MEDS: PANTOPRAZOLE SOD 40 MG DELAYED RELEASE TAB PO SCH (08:03)
[2017-05-15] MEDS: HYDROCORTISONE 2.5% CREAM 30 GM TOPICAL SCH (08:03)
[2017-05-15] MEDS: DOCUSATE SODIUM 50 MG/SENNA 8.6 MG TAB PO SCH ×2 (08:03→20:52)
--- NOTE | 2017-05-15 11:15 | HHI.NSPN ---
(Griffin Mathis) History Chief Complaint: s/p right craniotomy for subdural hemorrhage evacuation. (Griffin Mathis) Interval History 05/08/17: Pt underwent a right craniotomy for subdural hemorrhage evacuation early this morning. His sedation was held for exam. He opens his eyes. Pupils 3mm bilaterally. Follows commands. He nods he has headache. 05/09/17: Sedated but when held he follows commands. Pupils 3mm bilaterally reactive bilaterally. CODIE drain in place draining well. Intubated. 05/10/17: Pt awake and alert. Complains of headache and nausea. Follows commands well. Answers questions appropriately. 05/11/17: Patient awake and alert. He is confused but pleasant. He complains of headache. He complains of nausea. He is following commands. 05/12/17: Pt awakens to voice. Complains of headache. Pt refused PT today. Not cooperating with nurses also refusing po meds. 05/13/17: Pt awake and alert. Complains of pain all over. Pt seems more cooperative with staff today. Follows commands well. 05/14/17: Pt states he doesn't feel good but doesn't elaborate much. He reportedly isn't eating much. He complains of headache and soreness all over. He is willing to drink Ensure. 05/15/17: Pt complains of pain and request pain medication frequently. He follows commands. (Griffin Mathis) Review of Systems General: Negative for: fever, chills, insomnia Respiratory: Negative for: shortness of breath, cough, sputum Cardiovascular: Negative for: chest pain Gastrointestinal: Negative for: nausea, vomitting, diarrhea, constipation ( Griffin Mathis) Exam Results Vital Signs Date Time Temp Pulse Resp B/P (MAP) Pulse Ox O2 Delivery O2 Flow Rate FiO2 05/15/17 08:06 18 05/15/17 06:00 68 05/15/17 04:00 98.0 143/87 (105) 98 05/14/17 19:00 Nasal Cannula 2.00 2/28/18 07:56 21 Intake and Output 05/15/17 05/15/17 05/16/17 08:00 16:00 00:00 Intake Total 455 ml Output Total 850 ml Balance -395 ml (Griffin Mathis) Physical Examination General: Pt awakens to voice resting comfortably in bed. Eyes: Pupils 3mm bilaterally reactive bilaterally. Resp: Extubated without dyspnea. CTA bilaterally. Heart: NSR no murmurs Abd: Soft positive bs Skin: Incision clean and dry without signs of infection. Muscle: Moves all 4 extremities with generalized weakness. Neuro: Pt awakens to voice. Pupils 3mm bilaterally reactive bilaterally. Follows commands. Answers questions appropriately. Speech clear and appropriate. Complains of pain all the time. (Griffin Mathis) Lab, Micro, Other Results Last Impressions Head CT 05/13/17 0000 Signed Impressions: Service Date/Time: Saturday, May 13, 2017 10:37 - CONCLUSION: 1. Right subdural hemorrhage slightly less prominent measuring 14 mm. No significant midline shift. 2. Evolving small intraparenchymal hemorrhages with decreasing subarachnoid hemorrhage. Griffin Gurrola MD Pelvis X-Ray 05/08/17128 Signed Impressions: Service Date/Time: April 01:50 - CONCLUSION: No acute fracture. The hips are intact. Jacobo Davis MD Maxillofacial CT 05/08/17128 Signed Impressions: Service Date/Time: April 01:58 - CONCLUSION: 1. No acute fracture or malalignment. 2. Air-fluid levels and mucosal thickening in the paranasal sinuses. 3. Moderate to large right subdural hematoma again visualized. Please see brain CT for further details. Jacobo Davis MD Chest X-Ray 05/08/17128 Signed Impressions: Service Date/Time: April 01:49 - CONCLUSION: No acute disease. Jacobo Davis MD Cervical Spine CT 05/08/17128 Signed Impressions: Service Date/Time: April 01:58 - CONCLUSION: Negative trauma CT. Jacobo Davis MD Laboratory Tests Test 05/14/17 16:45 05/15/17 05:00 Potassium Level 3.6 MEQ/L 3.4 MEQ/L Blood Urea Nitrogen 8 MG/DL Creatinine 0.56 MG/DL Random Glucose 91 MG/DL Calcium Level 8.2 MG/DL Sodium Level 139 MEQ/L Chloride Level 106 MEQ/L Carbon Dioxide Level 25.2 MEQ/L Anion Gap 8 MEQ/L Estimat Glomerular Filtration Rate 144 ML/MIN (Griffin Mathis) Medical Decision Making Impression and Plan A: 72 y/o M s/p right craniotomy for subdural hemorrhage evacuation. Follow up CT head improved. Thrombocytopenia improved. Follow up CT head reviewed stable right subdural hemorrhage 1cm in width which is improved from preop. No significant midline shift. P: Continue with Neuro checks Continue with critical care. Continue with blood pressure control (Griffin Mathis) Attending Statement The exam, history, and the medical decision-making described in the above note were completed with the assistance of the mid-level provider. I reviewed and agree with the findings presented. I attest that I had a [id number] encounter with the patient on the same day, and personally performed and documented my assessment and findings in the medical record. Patient is awake and interactive with the fluent speech. He relates that is in pain all over and requesting more pain medications. Daughter at bedside and she informs me that he essentially has given up and will likely not participate with PT or OT and is not eating much. He has been in hospice before she is requesting we place him in hospice again with comfort measures only and she states that is also what he wants. Accordingly we will honor patient's and family's wishes. (Sotero Nelson MD) Griffin Mathis May 15, 2017 11:15 Sotero Nelson MD May 15, 2017 15:01
--- NOTE | 2017-05-15 11:30 | HHI.PR ---
Subjective Remarks in no acute distress. complaining of back pain and headache. Objective Vitals Vital Signs Date Time Temp Pulse Resp B/P (MAP) Pulse Ox O2 Delivery O2 Flow Rate FiO2 05/15/17 08:06 18 05/15/17 06:00 68 05/15/17 04:00 80 05/15/17 04:00 98.0 80 21 143/87 (105) 98 05/15/17 02:00 72 05/15/17 00:00 98.3 80 19 139/89 (106) 97 05/15/17 00:00 80 05/14/17 22:00 80 05/14/17 20:00 80 05/14/17 20:00 98.0 80 20 115/78 (90) 92 05/14/17 19:00 90 Nasal Cannula 2.00 05/14/17 18:00 83 05/14/17 17:38 18 05/14/17 16:00 89 05/14/17 16:00 98.4 82 21 142/83 (102) 93 05/14/17 14:00 70 05/14/17 12:00 60 05/14/17 12:00 98.5 66 27 147/86 (106) 93 I/O 05/14/17 05/14/17 05/14/17 05/15/17 05/15/17 05/15/17 06:59 14:59 22:59 06:59 14:59 22:59 Intake Total 1165 ml 200 ml 1168 ml 455 ml Output Total 800 ml 800 ml 1550 ml 850 ml Balance 365 ml -600 ml -382 ml -395 ml Intake Oral 60 ml 20 ml IV Total 1105 ml 200 ml 1148 ml 455 ml Output Urine Total 800 ml 800 ml 1550 ml 850 ml # Voids 2 # Bowel Movements 1 1 1 Result Diagram: 05/13/17 0615 05/15/17 0500 Imaging Last Impressions Head CT 05/13/17 0000 Signed Impressions: Service Date/Time: Saturday, May 13, 2017 10:37 - CONCLUSION: 1. Right subdural hemorrhage slightly less prominent measuring 14 mm. No significant midline shift. 2. Evolving small intraparenchymal hemorrhages with decreasing subarachnoid hemorrhage. Griffin Gurrola MD Pelvis X-Ray 05/08/17 0129 Signed Impressions: Service Date/Time: April 01:50 - CONCLUSION: No acute fracture. The hips are intact. Jacobo Davis MD Maxillofacial CT 05/08/17128 Signed Impressions: Service Date/Time: April 01:58 - CONCLUSION: 1. No acute fracture or malalignment. 2. Air-fluid levels and mucosal thickening in the paranasal sinuses. 3. Moderate to large right subdural hematoma again visualized. Please see brain CT for further details. Jacobo Davis MD Chest X-Ray 05/08/17128 Signed Impressions: Service Date/Time: April 01:49 - CONCLUSION: No acute disease. Jacobo Davis MD Cervical Spine CT 05/08/17128 Signed Impressions: Service Date/Time: April 01:58 - CONCLUSION: Negative trauma CT. Jacobo Davis MD Objective Remarks GENERAL: This is a well-nourished, well-developed patient, in no apparent distress. CARDIOVASCULAR: Regular rate and regular rhythm without murmurs, gallops, or rubs. RESPIRATORY: Clear to auscultation. Breath sounds equal bilaterally. No wheezes , rales, or rhonchi. GASTROINTESTINAL: Abdomen soft, non-tender, nondistended. Normal, active bowel sounds MUSCULOSKELETAL: Extremities without clubbing, cyanosis, or edema. NEURO: awake and alert. Medications and IVs Inpatient Medications Acetaminophen (Tylenol) 650 mg Q6H PRN PO PAIN 1-5 AND/OR FEVER >101F; Start at 04:00 Acetaminophen/ Hydrocodone Bitart (Ford 10-325 Mg) 1 tab Q4H PRN PO PAIN 6-10 Last administered on 05/13/17at 13:54; Start 05/08/17 at 04:00 Al Hydrox/Mg Hydrox/Simethicone (Mag-Al Plus Susp Liq) 30 ml Q6H PRN PO DYSPEPSIA; Start 05/08/17 at 02:45 Albuterol Sulfate (Albuterol Neb) 2.5 mg Q4HR NEB PRN NEB WHEEZING; Start 05/08 at 02:45; Stop 05/08/17 at 04:29; Status DC Albuterol/ Ipratropium (Duoneb Neb) 1 ampule Q2HR NEB PRN INH WHEEZING; Start 05/08/17 at 04:00 Alprazolam (Xanax) 0.5 mg Q6H PRN PO ANXIETY Last administered on 05/13/17at 01: 34; Start 05/08/17 at 04:00 Bisacodyl (Dulcolax Supp) 10 mg DAILY PRN RECTAL SEVERE CONSITIPATION; Start at 04:00 Calcium Gluconate 1 gm/Sodium Chloride 110 ml @ 110 mls/hr UNSCH PRN IV SEE LABEL COMMENTS Last administered on 05/09/17 05:15; Start 05/08/17 at 02:45 Calcium/Vitamin D (Oscal-D 250-125) 250 mg BID PO Last administered on 08:01; Start 05/08/17 at 09:00 Chlorhexidine Gluconate (Chlorhexidine 2% Cloth) 3 pack UNSCH PRN TOP HYGIENIC CARE; Start 05/08/17 at 04:00 Cholecalciferol (Vitamin D3) 400 units DAILY PO Last administered on 05/15/17at 08:01; Start 05/08/17 at 09:00 Clonidine (Catapres) 0.1 mg Q6H PRN PO SYS BP GREATER THAN 170 MMHG Last administered on 05/14/17at 04:42; Start 05/08/17 at 02:45 Dexmedetomidine HCl 200 mcg/ Sodium Chloride 52 ml @ 3.56 mls/hr TITRATE PRN IV SEDATION Last administered on 05/09/17 11:24; Start 05/09/17 at 09:30 Diphenhydramine HCl (Benadryl) 25 mg Q4H PRN PO SEE LABEL COMMENTS Last administered on 05/08/17 03:40; Start 05/08/17 at 02:45 Divalproex Sodium (Depakote Dr) 500 mg BID PO Last administered on 05/11/17at 20 :10; Start 05/08/17 at 09:00; Stop 05/12/17 at 14:15; Status DC Famotidine (Pepcid Inj) 20 mg Q12HR IV PUSH Last administered on 05/14/17 08: 20; Start 05/08/17 at 09:00; Stop 05/14/17 at 14:20; Status DC Famotidine (Pepcid) 20 mg BID PO Last administered on 05/15/17 08:01; Start at 21:00 Fentanyl Citrate (fentaNYL INJ) 25 mcg Q3H PRN IV PUSH PAIN SCALE 1 TO 10 Last administered on 05/15/17at 09:36; Start 05/09/17 at 19:00 Furosemide (Lasix Inj) 40 mg NOW ONCE IV PUSH Last administered on 05/09/17at 23:45; Start 05/09/17 at 23:45; Stop 05/09/17 at 23:47; Status DC Hydralazine HCl (Apresoline) 50 mg Q12HR PO Last administered on 05/15/17 08:02 ; Start 05/14/17 at 10:00 Hydrocortisone (Eldecort 2.5% Cream) 1 applic DAILY TOPICAL Last administered on 05/15/17 08:03; Start 05/08/17 at 09:00 Labetalol HCl (Trandate Inj) 10 mg Q1H PRN IV PUSH SYS BP GREATER THAN 170 MMHG Last administered on 05/13/17at 01:17; Start 05/08/17 at 02:45 Lactulose (Lactulose Liq) 30 ml DAILY PRN PO SEVERE CONSITIPATION; Start at 04:00 Levetriacetam 100 ml @ 400 mls/hr ONCE ONCE IV Last administered on at 02:55; Start 05/08/17 at 02:55; Stop 05/08/17 at 03:09; Status DC Levetriacetam 500 mg/Sodium Chloride 105 ml @ 400 mls/hr Q12H IV Last administered on 05/15/17at 02:57; Start 05/08/17 at 15:00 Lidocaine/ Epinephrine (Xylocaine-Epi 2%-1:100,000 Inj) 20 ml ONCE ONCE INFIL Last administered on 05/12/17at 11:45; Start 05/12/17 at 11:45; Stop 05/12/17 at 11:46; Status DC Lisinopril (Prinivil) 10 mg DAILY PO Last administered on 05/15/17at 08:02; Start 05/08/17 at 09:00 Lorazepam (Ativan Inj) 1 mg Q1H PRN IV PUSH SEIZURES; Start 05/08/17 at 02:45 Magnesium Hydroxide (Milk Of Magnesia Liq) 30 ml Q12H PRN PO Mild constipation ; Start 05/08/17 at 04:00 Magnesium Sulfate 2 gm/Sodium Chloride 104 ml @ 100 mls/hr UNSCH PRN IV MAGNESIUM LESS THAN 2 Last administered on 05/09/17 05:33; Start 05/08/17 at 02 :45 Miscellaneous Information 1 HS T-DERMAL Last administered on 05/14/17 21:33; Start 05/10/17 at 08:59 Morphine Sulfate (Morphine Inj) 2 mg Q4H PRN IV PUSH PAIN SCALE 5-10 Last administered on 05/15/17 08:01; Start 05/09/17 at 13:30 Nicardipine HCl 25 mg/Sodium Chloride 250 ml @ 50 mls/hr TITRATE PRN IV Blood pressure management Last administered on 05/13/17 21:26; Start 05/08/17 at 02: 45 Nicotine (Habitrol 21 Mg Patch.24 Hr) 1 patch DAILY T-DERMAL Last administered on 05/15/17 08:01; Start 05/09/17 at 19:00 Norepinephrine Bitartrate 4 mg/ Sodium Chloride 250 ml @ 7.5 mls/hr TITRATE PRN IV Maintain MAP > 65 mmHg Last administered on 05/08/17 21:30; Start at 21:45 Ondansetron HCl (Zofran Inj) 4 mg Q6H PRN IV PUSH NAUSEA OR VOMITING Last administered on 05/13/17 21:25; Start 05/08/17 at 04:00 Pantoprazole Sodium (Protonix) 40 mg DAILY PO Last administered on 05/14/17 08 :21; Start 05/08/17 at 09:00 Potassium Chloride 100 ml @ 50 mls/hr UNSCH PRN IV POTASSIUM LESS THAN 4 Last administered on 05/15/17 08:00; Start 05/08/17 at 02:45 Propofol 100 ml @ 1.5 mls/hr TITRATE PRN IV SEDATION Last administered on 05/09 01:43; Start 05/08/17 at 07:00; Stop 05/09/17 at 17:56; Status DC Senna/Docusate Sodium (Jenny-Colace) 1 tab BID PO Last administered on 21:32; Start 05/08/17 at 09:00 Sennosides (Senokot) 17.2 mg Q12H PRN PO Moderate constipation; Start 05/08/17 at 04:00 Sertraline HCl (Zoloft) 200 mg DAILY PO Last administered on 05/15/17 08:02; Start 05/08/17 at 09:00 Sodium Chloride 250 ml @ 15 mls/hr ONCE ONCE IV Last administered on 09:30; Start 05/10/17 at 09:30; Stop 05/11/17 at 02:17; Status DC Sodium Chloride (NS Flush) 2 ml BID IV FLUSH Last administered on 05/15/17 08: 03; Start 05/08/17 at 09:00 Trazodone HCl (Desyrel) 200 mg HS PO Last administered on 05/14/17 21:32; Start 05/08/17 at 21:00 Valproic Acid (Depakene Liq) 500 mg BID PO Last administered on 05/15/17 08:02 ; Start 05/12/17 at 21:00 A/P Assessment and Plan 1. Acute encephalopathy secondary to SDH- continue with neuro-checks 2. Subdural hematoma status post evacuation continue with neuro-checks and rehab efforts- neurosurgery following. 3. Acute postop respiratory insufficiency, on minimal FiO2 requirements, successfully extubated on 05/09 4. Chronic thrombocytopenia -improved and stable. 5. hypertension; continue Hydralazine and lisinopril- monitor BP and adjust the regimen as needed. 6. Seizure disorder -no recurrent seizures so far; continue with antiepileptics. 7. History of alcohol abuse -no signs of withdrawal Roland Rodriguez MD May 15, 2017 11:30
[2017-05-15] MEDS: LABETALOL HCL 100 MG/20 ML VIAL IV PUSH PRN (16:10)
[2017-05-15] MEDS: ACETAMINOPHEN/HYDROcodone 325 MG/10 MG TAB PO PRN (17:30)
[2017-05-15] MEDS: ALPRAZolam 0.5 MG TAB PO PRN (18:05)
[2017-05-15] MEDS: niCARdipine INJ 25 MG in SODIUM CHLOR 0.9% 250 ML INJ 240 ML IV PRN (19:38)
[2017-05-15] MEDS: traZODone HCL 100 MG TAB PO SCH (20:52)
[2017-05-15] MEDS: REMOVE OLD NICODERM (NICOTINE) PATCH T-DERMAL SCH (20:53)
[2017-05-16] VITALS (8 sets, daily range): BP systolic 124–155; BP diastolic 72–105; PULSE 61–102; RESP 10–14; TEMP 97.5–97.9; O2SAT 95–96
[2017-05-16] MEDS: levETIRAcetam INJ 500 MG in SODIUM CHLORIDE 0.9% INJ 100 ML IV SCH ×2 (02:19→13:33)
[2017-05-16] MEDS: SODIUM CHLOR 0.9% 1000 ML INJ 1,000 ML IV SCH ×2 (02:40→04:28)
[2017-05-16] MEDS: MORPHINE SULFATE 2 MG/ML INJ IV PUSH PRN ×2 (03:33→07:46)
[2017-05-16] MEDS: CHLORHEXIDINE GLUCONATE 2 % 1 PACK (2 CLOTHS) TOP SCH (03:40)
[2017-05-16] MEDS: VALPROIC ACID SYRUP 250 MG/5 ML UDC PO SCH (07:46)
[2017-05-16] MEDS: CHOLECALCIFEROL (VIT D3) 400 UNIT TAB PO SCH (07:46)
[2017-05-16] MEDS: CALCIUM/VITAMIN D 250 MG/125 U TAB PO SCH (07:46)
[2017-05-16] MEDS: SERTRALINE HCL 100 MG TAB PO SCH (07:46)
[2017-05-16] MEDS: DOCUSATE SODIUM 50 MG/SENNA 8.6 MG TAB PO SCH (07:46)
[2017-05-16] MEDS: FAMOTIDINE 20 MG TAB PO SCH (07:46)
[2017-05-16] MEDS: hydrALAZINE HCL 50 MG TAB PO SCH (07:47)
[2017-05-16] MEDS: LISINOPRIL 10 MG TAB PO SCH (07:47)
[2017-05-16] MEDS: NICOTINE 21 MG/24 HR PATCH T-DERMAL SCH (08:23)
[2017-05-16] MEDS: PANTOPRAZOLE SOD 40 MG DELAYED RELEASE TAB PO SCH (09:00)
[2017-05-16] MEDS: HYDROCORTISONE 2.5% CREAM 30 GM TOPICAL SCH (09:00)
[2017-05-16] MEDS: SODIUM CHLORIDE 0.9% FLUSH 10 ML FLUSH IV FLUSH SCH (09:00)
--- NOTE | 2017-05-16 09:53 | HHI.NSPN ---
History Chief Complaint: s/p right craniotomy for subdural hemorrhage evacuation. Interval History 05/08/17: Pt underwent a right craniotomy for subdural hemorrhage evacuation early this morning. His sedation was held for exam. He opens his eyes. Pupils 3mm bilaterally. Follows commands. He nods he has headache. 05/09/17: Sedated but when held he follows commands. Pupils 3mm bilaterally reactive bilaterally. CODIE drain in place draining well. Intubated. 05/10/17: Pt awake and alert. Complains of headache and nausea. Follows commands well. Answers questions appropriately. 05/11/17: Patient awake and alert. He is confused but pleasant. He complains of headache. He complains of nausea. He is following commands. 05/12/17: Pt awakens to voice. Complains of headache. Pt refused PT today. Not cooperating with nurses also refusing po meds. 05/13/17: Pt awake and alert. Complains of pain all over. Pt seems more cooperative with staff today. Follows commands well. 05/14/17: Pt states he doesn't feel good but doesn't elaborate much. He reportedly isn't eating much. He complains of headache and soreness all over. He is willing to drink Ensure. 05/15/17: Pt complains of pain and request pain medication frequently. He follows commands. 05/16/17: Pt complains of fatigue. Pts daughter has decided to place him in hospice. He complains of pain all over. Review of Systems General: Negative for: fever, chills, insomnia Respiratory: Negative for: shortness of breath, cough, sputum Cardiovascular: Negative for: chest pain Gastrointestinal: Negative for: nausea, vomitting, diarrhea, constipation Exam Results Vital Signs Date Time Temp Pulse Resp B/P (MAP) Pulse Ox O2 Delivery O2 Flow Rate FiO2 05/16/17 08:00 78 05/16/17 08:00 97.5 10 155/93 (113) 95 05/16/17 07:00 Room Air 05/14/17 19:00 2.00 05/14/17 07:56 21 Intake and Output 05/16/17 05/16/17 05/17/17 08:00 16:00 00:00 Intake Total 205 ml Output Total 1200 ml Balance -995 ml Physical Examination General: Pt awakens to voice resting comfortably in bed. Eyes: Pupils 3mm bilaterally reactive bilaterally. Resp: Extubated without dyspnea. CTA bilaterally. Heart: NSR no murmurs Abd: Soft positive bs Skin: Incision clean and dry without signs of infection. Muscle: Moves all 4 extremities with generalized weakness. Neuro: Pt awakens to voice. Pupils 3mm bilaterally reactive bilaterally. Follows commands. Answers questions appropriately. Speech clear and appropriate. Complains of pain all the time. Lab, Micro, Other Results Last Impressions Head CT 05/13/17 0000 Signed Impressions: Service Date/Time: Saturday, May 13, 2017 10:37 - CONCLUSION: 1. Right subdural hemorrhage slightly less prominent measuring 14 mm. No significant midline shift. 2. Evolving small intraparenchymal hemorrhages with decreasing subarachnoid hemorrhage. Griffin Gurrola MD Pelvis X-Ray 05/08/17128 Signed Impressions: Service Date/Time: April 01:50 - CONCLUSION: No acute fracture. The hips are intact. Jacobo Davis MD Maxillofacial CT 05/08/17128 Signed Impressions: Service Date/Time: April 01:58 - CONCLUSION: 1. No acute fracture or malalignment. 2. Air-fluid levels and mucosal thickening in the paranasal sinuses. 3. Moderate to large right subdural hematoma again visualized. Please see brain CT for further details. Jacobo Davis MD Chest X-Ray 05/08/17128 Signed Impressions: Service Date/Time: April 01:49 - CONCLUSION: No acute disease. Jacobo Davis MD Cervical Spine CT 05/08/17128 Signed Impressions: Service Date/Time: April 01:58 - CONCLUSION: Negative trauma CT. Jacobo Davis MD Medical Decision Making Impression and Plan A: 72 y/o M s/p right craniotomy for subdural hemorrhage evacuation. Follow up CT head improved. Thrombocytopenia improved. Follow up CT head reviewed stable right subdural hemorrhage 1cm in width which is improved from preop. No significant midline shift. P: Continue with Neuro checks Continue with critical care. Continue with blood pressure control Pt going into hospice. Griffin Mathis May 16, 2017 9:53 am
[2017-05-16] MEDS: ACETAMINOPHEN/HYDROcodone 325 MG/10 MG TAB PO PRN (10:20)
[2017-05-16] MEDS ORDERED: MORPHINE SULFATE 2 MG/ML INJ IM PRN (10:30)
[2017-05-16] MEDS ORDERED: MORPHINE SULFATE 15 MG CONTROLLED RELEASE TAB PO SCH (10:30)
--- NOTE | 2017-05-16 10:37 | HHI.PR ---
Subjective Remarks in no acute distress. complaining of severe generalized body ache and headache. BP trend noted. family at the bedside. d/w the RN. Objective Vitals Vital Signs Date Time Temp Pulse Resp B/P (MAP) Pulse Ox O2 Delivery O2 Flow Rate FiO2 05/16/17 08:00 78 05/16/17 08:00 97.5 78 10 155/93 (113) 95 05/16/17 07:00 95 Room Air 05/16/17 06:00 73 05/16/17 04:00 68 05/16/17 04:00 97.8 68 14 147/72 (97) 95 05/16/17 02:19 68 207/93 05/16/17 02:00 68 05/16/17 00:00 68 05/16/17 00:00 97.9 68 10 124/84 (97) 96 05/15/17 22:00 68 05/15/17 20:00 97.7 68 17 156/87 (110) 96 05/15/17 20:00 68 05/15/17 19:38 77 194/103 05/15/17 19:00 96 Room Air 05/15/17 18:30 20 05/15/17 18:00 60 05/15/17 16:00 67 05/15/17 16:00 98.2 74 14 170/96 (120) 96 05/15/17 15:41 20 05/15/17 15:04 22 05/15/17 14:00 69 05/15/17 12:00 66 05/15/17 12:00 98.4 60 16 161/85 (110) 93 I/O 05/15/17 05/15/17 05/15/17 05/16/17 05/16/17 05/16/17 07:00 15:00 23:00 07:00 15:00 23:00 Intake Total 455 ml 50 ml 205 ml Output Total 850 ml 1200 ml 1200 ml Balance -395 ml -1150 ml -995 ml Intake Oral 50 ml 100 ml IV Total 455 ml 105 ml Output Urine Total 850 ml 1200 ml 1200 ml # Bowel Movements 1 1 0 Result Diagram: 05/13/17 0615 05/15/17 0500 Imaging Last Impressions Head CT 05/13/17 0000 Signed Impressions: Service Date/Time: Saturday, May 13, 2017 10:37 - CONCLUSION: 1. Right subdural hemorrhage slightly less prominent measuring 14 mm. No significant midline shift. 2. Evolving small intraparenchymal hemorrhages with decreasing subarachnoid hemorrhage. Griffin Gurrola MD Pelvis X-Ray 05/08/17128 Signed Impressions: Service Date/Time: April 01:50 - CONCLUSION: No acute fracture. The hips are intact. Jacobo Davis MD Maxillofacial CT 05/08/17128 Signed Impressions: Service Date/Time: April 01:58 - CONCLUSION: 1. No acute fracture or malalignment. 2. Air-fluid levels and mucosal thickening in the paranasal sinuses. 3. Moderate to large right subdural hematoma again visualized. Please see brain CT for further details. Jacobo Davis MD Chest X-Ray 05/08/17128 Signed Impressions: Service Date/Time: April 01:49 - CONCLUSION: No acute disease. Jacobo Davis MD Cervical Spine CT 05/08/17128 Signed Impressions: Service Date/Time: April 01:58 - CONCLUSION: Negative trauma CT. Jacobo Davis MD Objective Remarks GENERAL: This is a well-nourished, well-developed patient, in no apparent distress. CARDIOVASCULAR: Regular rate and regular rhythm without murmurs, gallops, or rubs. RESPIRATORY: Clear to auscultation. Breath sounds equal bilaterally. No wheezes , rales, or rhonchi. GASTROINTESTINAL: Abdomen soft, non-tender, nondistended. Normal, active bowel sounds MUSCULOSKELETAL: Extremities without clubbing, cyanosis, or edema. NEURO: awake and alert. Procedures evacuation of subdural hematoma. Medications and IVs Inpatient Medications Acetaminophen (Tylenol) 650 mg Q6H PRN PO PAIN 1-5 AND/OR FEVER >101F; Start at 04:00 Acetaminophen/ Hydrocodone Bitart (Harshaw 10-325 Mg) 1 tab Q4H PRN PO PAIN 6-10 Last administered on 05/16/17at 10:20; Start 05/08/17 at 04:00 Al Hydrox/Mg Hydrox/Simethicone (Mag-Al Plus Susp Liq) 30 ml Q6H PRN PO DYSPEPSIA; Start 05/08/17 at 02:45 Albuterol Sulfate (Albuterol Neb) 2.5 mg Q4HR NEB PRN NEB WHEEZING; Start 05/08 at 02:45; Stop 05/08/17 at 04:29; Status DC Albuterol/ Ipratropium (Duoneb Neb) 1 ampule Q2HR NEB PRN INH WHEEZING; Start 05/08/17 at 04:00 Alprazolam (Xanax) 0.5 mg Q6H PRN PO ANXIETY Last administered on 05/15/17at 18: 05; Start 05/08/17 at 04:00 Bisacodyl (Dulcolax Supp) 10 mg DAILY PRN RECTAL SEVERE CONSITIPATION; Start at 04:00 Calcium Gluconate 1 gm/Sodium Chloride 110 ml @ 110 mls/hr UNSCH PRN IV SEE LABEL COMMENTS Last administered on 05/09/17at 05:15; Start 05/08/17 at 02:45 Calcium/Vitamin D (Oscal-D 250-125) 250 mg BID PO Last administered on 07:46; Start 05/08/17 at 09:00 Chlorhexidine Gluconate (Chlorhexidine 2% Cloth) 3 pack UNSCH PRN TOP HYGIENIC CARE; Start 05/08/17 at 04:00 Cholecalciferol (Vitamin D3) 400 units DAILY PO Last administered on 05/16/17 07:46; Start 05/08/17 at 09:00 Clonidine (Catapres) 0.1 mg Q6H PRN PO SYS BP GREATER THAN 170 MMHG Last administered on 05/14/17at 04:42; Start 05/08/17 at 02:45 Dexmedetomidine HCl 200 mcg/ Sodium Chloride 52 ml @ 3.56 mls/hr TITRATE PRN IV SEDATION Last administered on 05/09/17 11:24; Start 05/09/17 at 09:30 Diphenhydramine HCl (Benadryl) 25 mg Q4H PRN PO SEE LABEL COMMENTS Last administered on 05/08/17at 03:40; Start 05/08/17 at 02:45 Divalproex Sodium (Depakote Dr) 500 mg BID PO Last administered on 05/11/17at 20 :10; Start 05/08/17 at 09:00; Stop 05/12/17 at 14:15; Status DC Famotidine (Pepcid Inj) 20 mg Q12HR IV PUSH Last administered on 05/14/17at 08: 20; Start 05/08/17 at 09:00; Stop 05/14/17 at 14:20; Status DC Famotidine (Pepcid) 20 mg BID PO Last administered on 05/16/17 07:46; Start at 21:00 Fentanyl Citrate (fentaNYL INJ) 25 mcg Q3H PRN IV PUSH PAIN SCALE 1 TO 10 Last administered on 05/16/17 09:30; Start 05/09/17 at 19:00 Furosemide (Lasix Inj) 40 mg NOW ONCE IV PUSH Last administered on 05/09/17 23:45; Start 05/09/17 at 23:45; Stop 05/09/17 at 23:47; Status DC Hydralazine HCl (Apresoline) 50 mg Q12HR PO Last administered on 05/16/17 07:47 ; Start 05/14/17 at 10:00 Hydrocortisone (Eldecort 2.5% Cream) 1 applic DAILY TOPICAL Last administered on 05/16/17 09:00; Start 05/08/17 at 09:00 Labetalol HCl (Trandate Inj) 10 mg Q1H PRN IV PUSH SYS BP GREATER THAN 170 MMHG Last administered on 05/15/17 16:10; Start 05/08/17 at 02:45 Lactulose (Lactulose Liq) 30 ml DAILY PRN PO SEVERE CONSITIPATION; Start at 04:00 Levetriacetam 100 ml @ 400 mls/hr ONCE ONCE IV Last administered on at 02:55; Start 05/08/17 at 02:55; Stop 05/08/17 at 03:09; Status DC Levetriacetam 500 mg/Sodium Chloride 105 ml @ 400 mls/hr Q12H IV Last administered on 05/16/17 02:19; Start 05/08/17 at 15:00 Lidocaine/ Epinephrine (Xylocaine-Epi 2%-1:100,000 Inj) 20 ml ONCE ONCE INFIL Last administered on 05/12/17at 11:45; Start 05/12/17 at 11:45; Stop 05/12/17 at 11:46; Status DC Lisinopril (Prinivil) 10 mg DAILY PO Last administered on 05/16/17 07:47; Start 05/08/17 at 09:00 Lorazepam (Ativan Inj) 1 mg Q1H PRN IV PUSH SEIZURES; Start 05/08/17 at 02:45 Magnesium Hydroxide (Milk Of Magnesia Liq) 30 ml Q12H PRN PO Mild constipation ; Start 05/08/17 at 04:00 Magnesium Sulfate 2 gm/Sodium Chloride 104 ml @ 100 mls/hr UNSCH PRN IV MAGNESIUM LESS THAN 2 Last administered on 05/09/17 05:33; Start 05/08/17 at 02 :45 Miscellaneous Information 1 HS T-DERMAL Last administered on 05/15/17 20:53; Start 05/10/17 at 08:59 Morphine Sulfate (Morphine Inj) 2 mg Q4H PRN IV PUSH PAIN SCALE 5-10 Last administered on 05/16/17 07:46; Start 05/09/17 at 13:30 Nicardipine HCl 25 mg/Sodium Chloride 250 ml @ 50 mls/hr TITRATE PRN IV Blood pressure management Last administered on 05/15/17 19:38; Start 05/08/17 at 02:45 Nicotine (Habitrol 21 Mg Patch.24 Hr) 1 patch DAILY T-DERMAL Last administered on 05/16/17 08:23; Start 05/09/17 at 19:00 Norepinephrine Bitartrate 4 mg/ Sodium Chloride 250 ml @ 7.5 mls/hr TITRATE PRN IV Maintain MAP > 65 mmHg Last administered on 05/08/17at 21:30; Start at 21:45 Ondansetron HCl (Zofran Inj) 4 mg Q6H PRN IV PUSH NAUSEA OR VOMITING Last administered on 05/13/17 21:25; Start 05/08/17 at 04:00 Pantoprazole Sodium (Protonix) 40 mg DAILY PO Last administered on 05/14/17 08 :21; Start 05/08/17 at 09:00 Potassium Chloride 100 ml @ 50 mls/hr UNSCH PRN IV POTASSIUM LESS THAN 4 Last administered on 05/15/17 08:00; Start 05/08/17 at 02:45 Propofol 100 ml @ 1.5 mls/hr TITRATE PRN IV SEDATION Last administered on 05/09at 01:43; Start 05/08/17 at 07:00; Stop 05/09/17 at 17:56; Status DC Senna/Docusate Sodium (Jenny-Colace) 1 tab BID PO Last administered on 05/16/17 07:46; Start 05/08/17 at 09:00 Sennosides (Senokot) 17.2 mg Q12H PRN PO Moderate constipation; Start 05/08/17 at 04:00 Sertraline HCl (Zoloft) 200 mg DAILY PO Last administered on 05/16/17 07:46; Start 05/08/17 at 09:00 Sodium Chloride 250 ml @ 15 mls/hr ONCE ONCE IV Last administered on at 09:30; Start 05/10/17 at 09:30; Stop 05/11/17 at 02:17; Status DC Sodium Chloride (NS Flush) 2 ml BID IV FLUSH Last administered on 05/16/17at 09: 00; Start 05/08/17 at 09:00 Trazodone HCl (Desyrel) 200 mg HS PO Last administered on 05/15/17at 20:52; Start 05/08/17 at 21:00 Valproic Acid (Depakene Liq) 500 mg BID PO Last administered on 05/16/17 07:46 ; Start 05/12/17 at 21:00 A/P Assessment and Plan 1. Acute encephalopathy secondary to SDH- continue with neuro-checks 2. Subdural hematoma status post evacuation continue with neuro-checks and rehab efforts- neurosurgery following. continue with pain control. 3. Acute postop respiratory insufficiency, on minimal FiO2 requirements, successfully extubated on 05/09 4. Chronic thrombocytopenia -improved and stable. 5. hypertension; not well controlled; increase Hydralazine and lisinopril- monitor BP and adjust the regimen as needed. 6. Seizure disorder -no recurrent seizures so far; continue with antiepileptics. 7. History of alcohol abuse -no signs of withdrawal Discharge Planning hospice consulted- dc to hospice- likely today. d/w the patient and RN. time spent 35 min. Roland Rodriguez MD May 16, 2017 10:37
[2017-05-16] MEDS ORDERED: HYDR-3366 PO (10:41)
[2017-05-16] MEDS ORDERED: Albuterol-Ipratropium Neb INH (10:41)
[2017-05-16] MEDS ORDERED: MORP1TAB24 PO (10:41)
[2017-05-16] MEDS ORDERED: HYDR-3800 PO (10:41)
[2017-05-16] MEDS ORDERED: LISI10TA3 PO (10:41)
[2017-05-16] MEDS ORDERED: ALPR.5 PO (10:41)
--- NOTE | 2017-05-16 10:42 | HHI.DS ---
Discharge Summary Admission Date May 08, 2017 at 02:35 Discharge Date: May 16, 2017 Admitting Diagnosis SUBDURAL hematoma with shift (1) Subdural hematoma caused by concussion ICD Code: S06.5X9A - Traumatic subdural hemorrhage with loss of consciousness of unspecified duration, initial encounter Status: Acute Procedures evacuation of subdural hematoma. Brief History - From Admission 72-year-old male , currently at the rehabilitation facility, who fell from his bed and has a swelling to his right temporal area. He has arrived C-collared and boarded complains also back pain and mid thoracic. Patient is hard of hearing and slightly demented. His main complaint is fall from bed swelling to his head and back neck just prior to arrival. CT of the head reveals moderate to large right subdural hematoma with a mass effect and midline shift. Bilateral subarachnoid humeri which, a large cephalohematoma over the right frontal and parietal bones with no evidence of fracture. The patient is admitted to critical care services with a neurosurgical consultation in place. CBC/BMP: 05/13/17 0615 05/15/17 0500 Significant Findings Laboratory Tests Test 05/13/17 22:00 05/14/17 10:45 05/14/17 16:45 05/15/17 05:00 Potassium Level 3.4 MEQ/L (3.5-5.1) 3.2 MEQ/L (3.5-5.1) 3.4 MEQ/L (3.5-5.1) Creatinine 0.56 MG/DL (0.60-1.30) Calcium Level 8.2 MG/DL (8.5-10.1) Imaging Last Impressions Head CT 05/13/17 0000 Signed Impressions: Service Date/Time: Saturday, May 13, 2017 10:37 - CONCLUSION: 1. Right subdural hemorrhage slightly less prominent measuring 14 mm. No significant midline shift. 2. Evolving small intraparenchymal hemorrhages with decreasing subarachnoid hemorrhage. Griffin Gurrola MD Pelvis X-Ray 05/08/17 0129 Signed Impressions: Service Date/Time: April 01:50 - CONCLUSION: No acute fracture. The hips are intact. Jacobo Davis MD Maxillofacial CT 05/08/17128 Signed Impressions: Service Date/Time: April 01:58 - CONCLUSION: 1. No acute fracture or malalignment. 2. Air-fluid levels and mucosal thickening in the paranasal sinuses. 3. Moderate to large right subdural hematoma again visualized. Please see brain CT for further details. Jacobo Davis MD Chest X-Ray 05/08/17128 Signed Impressions: Service Date/Time: April 01:49 - CONCLUSION: No acute disease. Jacobo Davis MD Cervical Spine CT 05/08/17128 Signed Impressions: Service Date/Time: April 01:58 - CONCLUSION: Negative trauma CT. Jacobo Davis MD PE at Discharge GENERAL: This is a well-nourished, well-developed patient, in no apparent distress. CARDIOVASCULAR: Regular rate and regular rhythm without murmurs, gallops, or rubs. RESPIRATORY: Clear to auscultation. Breath sounds equal bilaterally. No wheezes , rales, or rhonchi. GASTROINTESTINAL: Abdomen soft, non-tender, nondistended. Normal, active bowel sounds MUSCULOSKELETAL: Extremities without clubbing, cyanosis, or edema. NEURO: awake and alert. Hospital Course 1. Acute encephalopathy secondary to SDH- continue with neuro-checks 2. Subdural hematoma status post evacuation continue with neuro-checks and rehab efforts- neurosurgery following. 3. Acute postop respiratory insufficiency, on minimal FiO2 requirements, successfully extubated on 05/09 4. Chronic thrombocytopenia -improved and stable. 5. hypertension; not well controlled; increase Hydralazine and lisinopril- monitor BP and adjust the regimen as needed. 6. Seizure disorder -no recurrent seizures so far; continue with antiepileptics. 7. History of alcohol abuse -no signs of withdrawal Pt Condition on Discharge: Guarded Discharge Disposition: Hospice/Med Facility Discharge Time: > 30 minutes Discharge Instructions DIET: Follow Instructions for: Heart Healthy Diet, Soft Diet Activities you can perform: Regular-No Restrictions Roland Rodriguez MD May 16, 2017 10:42
[2017-05-16] MEDS ORDERED: LIDOCAINE 1%/EPINEPHrine 1:100,000 SOLN 30 ML VIAL ONE (10:52)
[2017-05-16] MEDS: ALPRAZolam 0.5 MG TAB PO PRN (13:32)
[2017-05-16] MEDS: ONDANSETRON HCL 4 MG/2 ML VIAL IV PUSH PRN (13:48)
[2017-05-16] MEDS ORDERED: LISINOPRIL 5 MG TAB PO ONE (14:00)
[2017-05-16] MEDS ORDERED: hydrALAZINE HCL 50 MG TAB PO SCH (14:00)
[2017-05-17] MEDS ORDERED: LISINOPRIL 20 MG TAB PO SCH (09:00)
== END 2017-05-16 15:35 | disposition hospice, inpatient (51) | DRG 26 ==
LOC: NEPE 01:14 → NEDA 02:35 → HPAC 04:46 → N03A 06:25 → N03B 05-13 15:30
PROVIDERS: ADMIT Internal Medicine; ATTEND Internal Medicine
PROC: 5A1945Z Respiratory Ventilation, 24-96 Consecutive Hours (ICD-10-PCS; 2017-05-08)
PROC: 6A551Z2 Pheresis of Platelets, Multiple (ICD-10-PCS; 2017-05-08)
PROC: 0T9B70Z Drainage of Bladder with Drainage Device, Via Natural or Artificial Opening (ICD-10-PCS; 2017-05-08)
PROC: 05HM33Z Insertion of Infusion Device into Right Internal Jugular Vein, Percutaneous Approach (ICD-10-PCS; 2017-05-08)
PROC: 00C40ZZ Extirpation of Matter from Intracranial Subdural Space, Open Approach (ICD-10-PCS; principal; 2017-05-08 04:19)
DX: S06.5X9A Traumatic subdural hemorrhage with loss of consciousness of unspecified duration, initial encounter (principal); I16.1 Hypertensive emergency; J44.9 Chronic obstructive pulmonary disease, unspecified; R06.89 Other abnormalities of breathing; D69.6 Thrombocytopenia, unspecified; F03.90 Unspecified dementia, unspecified severity, without behavioral disturbance, psychotic disturbance, mood disturbance, and anxiety; S06.6X9A Traumatic subarachnoid hemorrhage with loss of consciousness of unspecified duration, initial encounter; K74.60 Unspecified cirrhosis of liver; F32.9 Major depressive disorder, single episode, unspecified; F41.9 Anxiety disorder, unspecified; M19.90 Unspecified osteoarthritis, unspecified site; I25.10 Atherosclerotic heart disease of native coronary artery without angina pectoris; H91.90 Unspecified hearing loss, unspecified ear; I10 Essential (primary) hypertension; F17.210 Nicotine dependence, cigarettes, uncomplicated; S06.2X9A Diffuse traumatic brain injury with loss of consciousness of unspecified duration, initial encounter; B19.20 Unspecified viral hepatitis C without hepatic coma; K44.9 Diaphragmatic hernia without obstruction or gangrene; G89.4 Chronic pain syndrome; Z66 Do not resuscitate; Z95.0 Presence of cardiac pacemaker; W06.XXXA Fall from bed, initial encounter; Y93.89 Activity, other specified; Y92.003 Bedroom of unspecified non-institutional (private) residence as the place of occurrence of the external cause; Z85.828 Personal history of other malignant neoplasm of skin; Z86.73 Personal history of transient ischemic attack (TIA), and cerebral infarction without residual deficits
CPT/HCPCS: 36430; 36556; 70450; 70486; 71045; 72125; 72170; 76937; 80048; 80053; 82805; 83605; 83735; 84100; 84132; 84155; 85007; 85025; 85027; 85610; 85730; 87641; 93005; 94002; 94003; 94150; 96374; 96375; C1713; J0610; J1580; J1940; J1953; J2270; J2370; J2405; J3010; J3370; J3475; J3480; J7030; J7040; J7050; J7120; P9035